=== PATIENT | male | born 1955 | race Caucasian/White ===

== ENCOUNTER → 2017-01-12 | Outpatient (REF) | payer MEDICARE ==
[2017-01-12 16:36] LABS: BASO # 0.1 10^3/uL (0.0-0.2); BASO % 0.7 % (0.0-1.0); EOS # 0.4 10^3/uL (0.0-0.50); EOS % 4.8 % (0.0-3.0); IMMATURE GRANULOCYTE % 0.3 % (0-0); LYMPH % 22.3 % (24.0-44.0); MEAN CORPUSCULAR HGB CONC 30.2 g/dl (32.0-36.5); MEAN CORPUSCULAR VOLUME 89.6 fl (80.0-96.0); MONO # 0.5 10^3/uL (0.0-0.8); MONO % 5.9 % (0.0-5.0); NEUTROPHILS # 5.9 10^3/uL (1.8-7.7); PLATELET COUNT, AUTOMATED 333 10^3/uL (150-450); RED CELL DISTRIBUTION WIDTH 14.6 % (11.5-14.5)
[2017-01-12 17:02] LABS: ALBUMIN 3.2 GM/DL (3.2-5.2); ALBUMIN/GLOBULIN RATIO 0.91 (1.00-1.93); BILIRUBIN,TOTAL 0.3 MG/DL (0.2-1.0); CALCIUM LEVEL 9.1 MG/DL (8.8-10.2); CREATININE FOR GFR 1.39 MG/DL (0.70-1.30); GLOMERULAR FILTRATION RATE 55.5 (>49); TOTAL PROTEIN 6.7 GM/DL (6.4-8.2)
[2017-01-12 17:03] LABS: POTASSIUM SERUM 5.2 MEQ/L (3.5-5.1)
[2017-01-13 14:12] LABS: BASO # 0.1 10^3/uL (0.0-0.2); BASO % 0.8 % (0.0-1.0); EOS # 0.4 10^3/uL (0.0-0.50); EOS % 5.6 % (0.0-3.0); IMMATURE GRANULOCYTE % 0.4 % (0-0); LYMPH # 2.1 10^3/uL (1.5-4.5); LYMPH % 27.8 % (24.0-44.0); MEAN CORPUSCULAR HEMOGLOBIN 27.1 pg (27.0-33.0); MEAN CORPUSCULAR HGB CONC 30.7 g/dl (32.0-36.5); MEAN CORPUSCULAR VOLUME 88.3 fl (80.0-96.0); MONO # 0.5 10^3/uL (0.0-0.8); MONO % 6.1 % (0.0-5.0); NEUTROPHILS # 4.5 10^3/uL (1.8-7.7); NEUTROPHILS % 59.3 % (36.0-66.0); PLATELET COUNT, AUTOMATED 366 10^3/uL (150-450); RED CELL DISTRIBUTION WIDTH 14.5 % (11.5-14.5); WHITE BLOOD COUNT 7.5 10^3/uL (4.0-10.0)
[2017-01-13 14:17] LABS: PERCENT SATURATION 11.6 % (19.7-50.0)
== END ==
LOC: M LAB REF 15:37
PROVIDERS: ATTEND Family Medicine Addiction Medicine
DX: E11.40 Type 2 diabetes mellitus with diabetic neuropathy, unspecified (principal); D50.0 Iron deficiency anemia secondary to blood loss (chronic)

== ENCOUNTER → 2017-01-27 | Outpatient (REF) | payer MEDICARE ==
[2017-01-27 13:17] LABS: BASO # 0.1 10^3/uL (0.0-0.2); BASO % 0.7 % (0.0-1.0); EOS # 0.3 10^3/uL (0.0-0.50); EOS % 3.8 % (0.0-3.0); IMMATURE GRANULOCYTE % 0.5 % (0-0); LYMPH % 23.3 % (24.0-44.0); MEAN CORPUSCULAR HEMOGLOBIN 26.9 pg (27.0-33.0); MEAN CORPUSCULAR HGB CONC 31.1 g/dl (32.0-36.5); MEAN CORPUSCULAR VOLUME 86.5 fl (80.0-96.0); MONO # 0.5 10^3/uL (0.0-0.8); NEUTROPHILS # 5.6 10^3/uL (1.8-7.7); NEUTROPHILS % 65.7 % (36.0-66.0); PLATELET COUNT, AUTOMATED 352 10^3/uL (150-450); RED CELL DISTRIBUTION WIDTH 14.6 % (11.5-14.5); WHITE BLOOD COUNT 8.5 10^3/uL (4.0-10.0)
[2017-01-27 13:42] LABS: ALBUMIN 3.2 GM/DL (3.2-5.2); ALBUMIN/GLOBULIN RATIO 0.84 (1.00-1.93); BILIRUBIN,TOTAL 0.3 MG/DL (0.2-1.0); CALCIUM LEVEL 8.6 MG/DL (8.8-10.2); CREATININE FOR GFR 1.34 MG/DL (0.70-1.30); GLOMERULAR FILTRATION RATE 57.9 (>49); POTASSIUM SERUM 4.7 MEQ/L (3.5-5.1)
== END ==
LOC: M LAB REF 12:45
PROVIDERS: ATTEND Family Medicine Addiction Medicine
DX: E11.40 Type 2 diabetes mellitus with diabetic neuropathy, unspecified (principal); D50.0 Iron deficiency anemia secondary to blood loss (chronic)

== ENCOUNTER → 2017-02-11 | Outpatient (REF) | payer MEDICARE ==
[2017-02-11 19:57] LABS: PERCENT SATURATION 11.8 % (19.7-50.0)
== END ==
LOC: M LAB REF 18:16
PROVIDERS: ATTEND Internal Medicine Medical Oncology
DX: D64.9 Anemia, unspecified (principal)

== ENCOUNTER → 2017-03-03 | Outpatient (REF) | payer MEDICARE ==
[2017-03-03 12:46] LABS: BASO # 0.1 10^3/uL (0.0-0.2); BASO % 0.9 % (0.0-1.0); EOS # 0.4 10^3/uL (0.0-0.50); EOS % 4.7 % (0.0-3.0); HEMATOCRIT 31.2 % (42.0-52.0); HEMOGLOBIN 9.6 g/dl (14.0-18.0); IMMATURE GRANULOCYTE % 0.4 % (0-0); LYMPH # 2.1 10^3/uL (1.5-4.5); LYMPH % 21.9 % (24.0-44.0); MEAN CORPUSCULAR HEMOGLOBIN 26.9 pg (27.0-33.0); MEAN CORPUSCULAR HGB CONC 30.8 g/dl (32.0-36.5); MEAN CORPUSCULAR VOLUME 87.4 fl (80.0-96.0); MONO # 0.5 10^3/uL (0.0-0.8); MONO % 5.4 % (0.0-5.0); NEUTROPHILS # 6.3 10^3/uL (1.8-7.7); NEUTROPHILS % 66.7 % (36.0-66.0); PLATELET COUNT, AUTOMATED 285 10^3/uL (150-450); RED BLOOD COUNT 3.57 10^6/uL (4.30-6.10); RED CELL DISTRIBUTION WIDTH 15.6 % (11.5-14.5); WHITE BLOOD COUNT 9.4 10^3/uL (4.0-10.0)
[2017-03-03 12:56] LABS: LDH LACTATE DEHYDROGENASE 150 U/L (87-241)
[2017-03-03 13:02] LABS: FERRITIN 473 NG/ML (26-388); IRON (FE) 82 UG/DL (65-175); PERCENT SATURATION 26.5 % (19.7-50.0); TOTAL IRON BINDING CAPACITY 309 UG/DL (250-450)
[2017-03-05 14:10] LABS: ANTI-PARIETAL CELL ANTIBODY 7.4 Units (0.0-20.0)
[2017-03-05 14:10] LABS: HAPTOGLOBIN 162 mg/dL (34-200); INTRINSIC FACTOR ANTIBODY 0.9 AU/mL (0.0-1.1); IgA SERUM (part of Subclasses) 279 mg/dL (90-386); TISSUE TRANSGLUTAMINASE IgA <2 U/mL (0-3)
== END ==
LOC: M LABDRWAD 12:16
DX: D50.9 Iron deficiency anemia, unspecified (principal)
CPT/HCPCS: 83010

== ENCOUNTER 2017-04-02 09:02 | Day surgery (SDC) | payer MEDICARE ==
[2017-04-02] MEDS ORDERED: NS 1,000 ML IV (09:30)
[2017-04-02] MEDS ORDERED: PROPOFOL 500 MG/50 ML VIAL As Ordered (11:02)
[2017-04-02] MEDS ORDERED: LIDOCAINE 2% INJ 100 MG/5 ML SDV (FOR ANES.) As Ordered (11:02)
== END 2017-04-02 12:32 | disposition home or self-care (01) ==
LOC: M OPP 09:02
DX: D50.9 Iron deficiency anemia, unspecified (principal); K57.30 Diverticulosis of large intestine without perforation or abscess without bleeding; K64.8 Other hemorrhoids; K22.8 Other specified diseases of esophagus; K31.89 Other diseases of stomach and duodenum; K21.9 Gastro-esophageal reflux disease without esophagitis; I12.9 Hypertensive chronic kidney disease with stage 1 through stage 4 chronic kidney disease, or unspecified chronic kidney disease; E78.5 Hyperlipidemia, unspecified; E10.9 Type 1 diabetes mellitus without complications; E03.9 Hypothyroidism, unspecified; K57.32 Diverticulitis of large intestine without perforation or abscess without bleeding; K76.9 Liver disease, unspecified; R12 Heartburn; R06.02 Shortness of breath; M06.9 Rheumatoid arthritis, unspecified; F32.9 Major depressive disorder, single episode, unspecified; J44.9 Chronic obstructive pulmonary disease, unspecified; G47.30 Sleep apnea, unspecified; R06.83 Snoring; N18.3 Chronic kidney disease, stage 3 (moderate); Z87.19 Personal history of other diseases of the digestive system; F17.210 Nicotine dependence, cigarettes, uncomplicated; Z79.899 Other long term (current) drug therapy; Z80.3 Family history of malignant neoplasm of breast
CPT/HCPCS: 45378

== ENCOUNTER → 2017-04-06 | Outpatient (REF) | payer MEDICARE ==
[2017-04-06 14:33] LABS: BASO # 0.1 10^3/uL (0.0-0.2); BASO % 0.9 % (0.0-1.0); EOS # 0.2 10^3/uL (0.0-0.50); EOS % 1.1 % (0.0-3.0); HEMATOCRIT 37.3 % (42.0-52.0); HEMOGLOBIN 11.8 g/dl (14.0-18.0); IMMATURE GRANULOCYTE # 0.1 10^3/uL (0-0); IMMATURE GRANULOCYTE % 0.6 % (0-0); LYMPH # 1.1 10^3/uL (1.5-4.5); LYMPH % 8.6 % (24.0-44.0); MEAN CORPUSCULAR HEMOGLOBIN 27.4 pg (27.0-33.0); MEAN CORPUSCULAR HGB CONC 31.6 g/dl (32.0-36.5); MEAN CORPUSCULAR VOLUME 86.5 fl (80.0-96.0); MONO # 0.3 10^3/uL (0.0-0.8); MONO % 2.4 % (0.0-5.0); NEUTROPHILS # 11.3 10^3/uL (1.8-7.7); NEUTROPHILS % 86.4 % (36.0-66.0); PLATELET COUNT, AUTOMATED 240 10^3/uL (150-450); RED BLOOD COUNT 4.31 10^6/uL (4.30-6.10); WHITE BLOOD COUNT 13.1 10^3/uL (4.0-10.0)
[2017-04-06 14:53] LABS: FERRITIN 249 NG/ML (26-388); IRON (FE) 52 UG/DL (65-175); PERCENT SATURATION 20.5 % (19.7-50.0); TOTAL IRON BINDING CAPACITY 254 UG/DL (250-450)
== END ==
LOC: M LABDRWAD 13:28
DX: D64.9 Anemia, unspecified (principal)
CPT/HCPCS: 83550

== ENCOUNTER → 2017-06-16 | Outpatient (REF) | payer MEDICARE ==
[2017-06-16 12:44] LABS: BASO # 0.1 10^3/uL (0.0-0.2); BASO % 1.1 % (0.0-1.0); EOS # 0.6 10^3/uL (0.0-0.50); EOS % 5.3 % (0.0-3.0); HEMATOCRIT 36.8 % (42.0-52.0); HEMOGLOBIN 12.2 g/dl (13.5-17.5); IMMATURE GRANULOCYTE % 0.7 % (0-3.0); LYMPH # 2.1 10^3/uL (1.5-4.5); LYMPH % 20.3 % (24.0-44.0); MEAN CORPUSCULAR HEMOGLOBIN 28.6 pg (27.0-33.0); MEAN CORPUSCULAR HGB CONC 33.2 g/dl (32.0-36.5); MEAN CORPUSCULAR VOLUME 86.2 fl (80.0-96.0); MONO # 0.6 10^3/uL (0.0-0.8); MONO % 5.7 % (0.0-5.0); NEUTROPHILS % 66.9 % (36.0-66.0); PLATELET COUNT, AUTOMATED 227 10^3/uL (150-450); RED BLOOD COUNT 4.27 10^6/uL (4.30-6.10); RED CELL DISTRIBUTION WIDTH 13.9 % (11.5-14.5); WHITE BLOOD COUNT 10.5 10^3/uL (4.0-10.0)
[2017-06-16 13:27] LABS: FERRITIN 433 NG/ML (26-388); IRON (FE) 77 UG/DL (65-175); PERCENT SATURATION 30.9 % (19.7-50.0); TOTAL IRON BINDING CAPACITY 249 UG/DL (250-450)
[2017-06-18 08:09] LABS: FOLATE 7.5 NG/ML; VITAMIN B12 LEVEL 306 PG/ML
== END ==
LOC: M LABDRWAD 12:14
DX: K22.70 Barrett's esophagus without dysplasia (principal)
CPT/HCPCS: 82746

== ENCOUNTER → 2017-06-30 | Outpatient (CLI) | payer MEDICARE ==
[~2017-06-30] MED LIST: E-Z-PAQUE 96% w/w SUSP 176GM BTL As Ordered
== END ==
LOC: M RAD 08:22
DX: D46.4 Refractory anemia, unspecified (principal)
CPT/HCPCS: 74250

== ENCOUNTER → 2017-08-02 | Outpatient (CLI) | payer MEDICARE ==
[2017-08-02 20:31] LABS: FERRITIN 377 NG/ML (26-388); IRON (FE) 57 UG/DL (65-175); PERCENT SATURATION 24.2 % (19.7-50.0); TOTAL IRON BINDING CAPACITY 236 UG/DL (250-450)
[2017-08-02 20:34] LABS: BASO # 0.1 10^3/uL (0.0-0.2); BASO % 1.3 % (0.0-1.0); EOS # 0.5 10^3/uL (0.0-0.50); EOS % 5.2 % (0.0-3.0); HEMATOCRIT 38.1 % (42.0-52.0); HEMOGLOBIN 13.1 g/dl (13.5-17.5); IMMATURE GRANULOCYTE % 0.5 % (0-3.0); LYMPH # 2.1 10^3/uL (1.5-4.5); MEAN CORPUSCULAR HEMOGLOBIN 30.7 pg (27.0-33.0); MEAN CORPUSCULAR HGB CONC 34.4 g/dl (32.0-36.5); MEAN CORPUSCULAR VOLUME 89.2 fl (80.0-96.0); MONO # 0.5 10^3/uL (0.0-0.8); MONO % 5.4 % (0.0-5.0); NEUTROPHILS # 6.3 10^3/uL (1.8-7.7); NEUTROPHILS % 65.6 % (36.0-66.0); PLATELET COUNT, AUTOMATED 246 10^3/uL (150-450); RED BLOOD COUNT 4.27 10^6/uL (4.30-6.10); RED CELL DISTRIBUTION WIDTH 13.6 % (11.5-14.5); WHITE BLOOD COUNT 9.6 10^3/uL (4.0-10.0)
== END ==
LOC: M ADAMS 17:12
DX: D50.9 Iron deficiency anemia, unspecified (principal)
CPT/HCPCS: 83550

== ENCOUNTER → 2017-09-08 | Outpatient (CLI) | payer MEDICARE ==
[2017-09-08 12:27] LABS: BASO # 0.1 10^3/uL (0.0-0.2); BASO % 1.1 % (0.0-1.0); EOS # 0.3 10^3/uL (0.0-0.50); EOS % 3.7 % (0.0-3.0); HEMATOCRIT 35.5 % (42.0-52.0); HEMOGLOBIN 12.1 g/dl (13.5-17.5); IMMATURE GRANULOCYTE % 0.5 % (0-3.0); LYMPH # 1.9 10^3/uL (1.5-4.5); LYMPH % 21.2 % (24.0-44.0); MEAN CORPUSCULAR HEMOGLOBIN 30.4 pg (27.0-33.0); MEAN CORPUSCULAR HGB CONC 34.1 g/dl (32.0-36.5); MEAN CORPUSCULAR VOLUME 89.2 fl (80.0-96.0); MONO # 0.5 10^3/uL (0.0-0.8); MONO % 5.7 % (0.0-5.0); NEUTROPHILS # 6.2 10^3/uL (1.8-7.7); NEUTROPHILS % 67.8 % (36.0-66.0); PLATELET COUNT, AUTOMATED 226 10^3/uL (150-450); RED BLOOD COUNT 3.98 10^6/uL (4.30-6.10); RED CELL DISTRIBUTION WIDTH 12.6 % (11.5-14.5); WHITE BLOOD COUNT 9.2 10^3/uL (4.0-10.0)
[2017-09-08 13:13] LABS: CREATININE FOR GFR 1.59 MG/DL (0.70-1.30); FERRITIN 389 NG/ML (26-388); GLOMERULAR FILTRATION RATE 47.5 (>49); IRON (FE) 65 UG/DL (65-175); PERCENT SATURATION 27.4 % (19.7-50.0); TOTAL IRON BINDING CAPACITY 237 UG/DL (250-450)
[2017-09-08 13:13] LABS: BLOOD UREA NITROGEN 33 MG/DL (7-18)
[2017-09-08 13:28] LABS: VITAMIN B12 LEVEL 405 PG/ML
[2017-09-08 13:29] LABS: FOLATE 7.5 NG/ML
== END ==
LOC: M ADAMS 08:31
DX: D50.9 Iron deficiency anemia, unspecified (principal)
CPT/HCPCS: 82565

== ENCOUNTER → 2017-09-16 | Outpatient (CLI) | payer MEDICARE | LOC: M RAD 08:07 | DX: Z12.2 Encounter for screening for malignant neoplasm of respiratory organs (principal); F17.218 Nicotine dependence, cigarettes, with other nicotine-induced disorders; R91.1 Solitary pulmonary nodule | CPT/HCPCS: G0297 ==

== ENCOUNTER → 2017-10-15 | Outpatient (REF) | payer MEDICARE ==
[2017-10-15 17:23] LABS: ESTIMATED AVERAGE GLUCOSE 278 MG/DL (60-110); HEMOGLOBIN A1c 11.3 %
[2017-10-15 17:38] LABS: ALBUMIN 3.1 GM/DL (3.2-5.2); ALBUMIN/GLOBULIN RATIO 0.91 (1.00-1.93); ALKALINE PHOSPHATASE 113 U/L (45-117); ALT/SGPT 20 U/L (12-78); ANION GAP 7 MEQ/L (8-16); AST/SGOT 16 U/L (7-37); BILIRUBIN,TOTAL 0.4 MG/DL (0.2-1.0); BLOOD UREA NITROGEN 26 MG/DL (7-18); CARBON DIOXIDE LEVEL 29 MEQ/L (21-32); CHLORIDE LEVEL 102 MEQ/L (98-107); CREATININE FOR GFR 1.41 MG/DL (0.70-1.30); GLOMERULAR FILTRATION RATE 54.6 (>49); GLUCOSE, FASTING 186 MG/DL (70-100); POTASSIUM SERUM 4.6 MEQ/L (3.5-5.1); RHEUMATOID FACTOR QUANT 24.3 IU/ML (<15.0); SODIUM LEVEL 138 MEQ/L (136-145); TOTAL PROTEIN 6.5 GM/DL (6.4-8.2)
[2017-10-15 17:51] LABS: CREATININE, URINE 70.5 MG/DL; MAU/CREAT RATIO 6453.9 MCG/MG (0.0-30.0)
== END ==
LOC: M LAB REF 16:12
DX: E11.40 Type 2 diabetes mellitus with diabetic neuropathy, unspecified (principal)
CPT/HCPCS: 84443

== ENCOUNTER → 2017-11-08 | Outpatient (REF) | payer MEDICARE ==
[2017-11-08 13:46] LABS: RETIC HEMOGLOBIN EQUIVALENT 34.9 pg (24-36); RETICULOCYTE # 87.4 10^9/L (17-77); RETICULOCYTE % 2.4 % (0.5-1.5)
[2017-11-08 13:49] LABS: SLIDE REVIEW Report; SOURCE PERIPHERAL SMEAR
[2017-11-09 08:06] LABS: HAPTOGLOBIN 234 mg/dL (34-200)
== END ==
LOC: M LAB REF 13:04
DX: D50.9 Iron deficiency anemia, unspecified (principal)
CPT/HCPCS: 83010

== ENCOUNTER 2017-11-29 09:02 | Emergency (ER) | payer MEDICARE ==
[2017-11-29] MEDS: IPRATROPIUM 0.5MG/ALBUTEROL 2.5MG INH SOL UD 3ML (DUONEB)(J7620) NEB ×3 (10:03→11:11)
[2017-11-29] MEDS: methylPREDNISolone INJ 125 MG/2 ML VIAL (J2930) IV (10:13)
[2017-11-29 10:30] LABS: BASO # 0.1 10^3/uL (0.0-0.2); BASO % 0.8 % (0.0-1.0); EOS # 0.6 10^3/uL (0.0-0.50); EOS % 6.1 % (0.0-3.0); LYMPH # 2.2 10^3/uL (1.5-4.5); LYMPH % 22.2 % (24.0-44.0); MEAN CORPUSCULAR HEMOGLOBIN 29.6 pg (27.0-33.0); MEAN CORPUSCULAR HGB CONC 32.4 g/dl (32.0-36.5); MEAN CORPUSCULAR VOLUME 91.6 fl (80.0-96.0); MONO # 0.6 10^3/uL (0.0-0.8); MONO % 5.9 % (0.0-5.0); NEUTROPHILS # 6.2 10^3/uL (1.8-7.7); PLATELET COUNT, AUTOMATED 212 10^3/uL (150-450); RED BLOOD COUNT 3.71 10^6/uL (4.30-6.10); RED CELL DISTRIBUTION WIDTH 12.3 % (11.5-14.5); WHITE BLOOD COUNT 9.8 10^3/uL (4.0-10.0)
[2017-11-29 11:00] LABS: ANION GAP 4 MEQ/L (8-16); BLOOD UREA NITROGEN 25 MG/DL (7-18); CALCIUM LEVEL 8.4 MG/DL (8.8-10.2); CARBON DIOXIDE LEVEL 32 MEQ/L (21-32); CHLORIDE LEVEL 101 MEQ/L (98-107); CPK CREATINE PHOSPHOKINASE 280 U/L (39-308); CREATININE FOR GFR 1.34 MG/DL (0.70-1.30); GLOMERULAR FILTRATION RATE 57.9 (>49); GLUCOSE, FASTING 186 MG/DL (70-100); MB/CK RELATIVE INDEX 1.21 (< OR =4); NT-PRO BNP 187 PG/ML (<125); SODIUM LEVEL 137 MEQ/L (136-145); TROPONIN I < 0.02 NG/ML (< 0.10)
[2017-11-29 11:04] LABS: LACTIC ACID SEPSIS PROTOCOL 0.7 MMOL/L (0.4-2.0)
== END 2017-11-29 13:10 | disposition home or self-care (01) ==
LOC: M ED 09:02
DX: J45.901 Unspecified asthma with (acute) exacerbation (principal); R91.1 Solitary pulmonary nodule; R59.9 Enlarged lymph nodes, unspecified; N28.1 Cyst of kidney, acquired; K80.20 Calculus of gallbladder without cholecystitis without obstruction; I87.8 Other specified disorders of veins; R31.9 Hematuria, unspecified; Z98.890 Other specified postprocedural states; J44.9 Chronic obstructive pulmonary disease, unspecified; N18.3 Chronic kidney disease, stage 3 (moderate); D50.9 Iron deficiency anemia, unspecified; Z87.891 Personal history of nicotine dependence
CPT/HCPCS: J2930

== ENCOUNTER → 2017-11-29 | Outpatient (CLI) | payer MEDICARE | LOC: M RAD 13:44 | DX: R91.1 Solitary pulmonary nodule (principal); R59.9 Enlarged lymph nodes, unspecified; N28.1 Cyst of kidney, acquired; K80.20 Calculus of gallbladder without cholecystitis without obstruction; I87.8 Other specified disorders of veins; R31.9 Hematuria, unspecified; Z98.890 Other specified postprocedural states ==

== ENCOUNTER → 2017-11-29 | Outpatient (CLI) | payer MEDICARE | LOC: M RAD 13:46 | DX: N28.1 Cyst of kidney, acquired (principal); K80.20 Calculus of gallbladder without cholecystitis without obstruction; I87.8 Other specified disorders of veins; R31.9 Hematuria, unspecified; Z98.890 Other specified postprocedural states ==

== ENCOUNTER → 2018-01-25 | Outpatient (CLI) | payer MEDICARE | LOC: M SLEEP 19:24 | DX: G47.33 Obstructive sleep apnea (adult) (pediatric) (principal); G47.61 Periodic limb movement disorder | CPT/HCPCS: 95811 ==

== ENCOUNTER → 2018-03-04 | Outpatient (REF) | payer MEDICARE ==
[~2018-03-04] MED LIST changes: +ADV100INH INH; +ALBU83IN INH; +ATOR40TA75 PO; -E-Z-PAQUE 96% w/w SUSP 176GM BTL As Ordered; +FENO160T10 PO; +FERR325T3 PO; +FURO40TA2 PO; +GABA600T4 PO; +HYDR-3910 PO; +IPRA2IN INH; +LEVE1INJ5 SC; +LEVO150T7 PO; +LEXA1TAB2 PO; +LISI-542 PO; +LISI10TA2 PO; +NOVOINJ3 SC; +OMEP20CA3 PO; +PRED10TA2 PO; +PREG50CA PO; +PROAAER10 INH; +RANI150C PO; +TIOT18INH INH; +TOUJ1.2I SC
[2018-03-04 19:11] LABS: BASO # 0.1 10^3/uL (0.0-0.2); BASO % 0.8 % (0.0-1.0); EOS # 0.2 10^3/uL (0.0-0.50); EOS % 1.2 % (0.0-3.0); HEMATOCRIT 37.2 % (42.0-52.0); HEMOGLOBIN 12.1 g/dl (13.5-17.5); LYMPH # 1.7 10^3/uL (1.5-4.5); LYMPH % 11.7 % (24.0-44.0); MEAN CORPUSCULAR HEMOGLOBIN 30.2 pg (27.0-33.0); MEAN CORPUSCULAR HGB CONC 32.5 g/dl (32.0-36.5); MEAN CORPUSCULAR VOLUME 92.8 fl (80.0-96.0); MONO # 0.5 10^3/uL (0.0-0.8); MONO % 3.1 % (0.0-5.0); NEUTROPHILS # 12.3 10^3/uL (1.8-7.7); NEUTROPHILS % 82.4 % (36.0-66.0); PLATELET COUNT, AUTOMATED 340 10^3/uL (150-450); RED BLOOD COUNT 4.01 10^6/uL (4.30-6.10); WHITE BLOOD COUNT 14.9 10^3/uL (4.0-10.0)
[2018-03-04 19:18] LABS: ALT/SGPT 22 U/L (12-78); BILIRUBIN,TOTAL 0.4 MG/DL (0.2-1.0); BLOOD UREA NITROGEN 34 MG/DL (7-18); C REACTIVE PROTEIN QUANTITATIV 2.27 MG/DL (0.00-0.30); CALCIUM LEVEL 8.7 MG/DL (8.8-10.2); CARBON DIOXIDE LEVEL 27 MEQ/L (21-32); CHLORIDE LEVEL 99 MEQ/L (98-107); CREATININE FOR GFR 1.53 MG/DL (0.70-1.30); GLOMERULAR FILTRATION RATE 49.5 (>49); GLUCOSE, FASTING 222 MG/DL (70-100); POTASSIUM SERUM 5.9 MEQ/L (3.5-5.1); RHEUMATOID FACTOR QUANT 14.5 IU/ML (<15.0); SODIUM LEVEL 134 MEQ/L (136-145); TOTAL PROTEIN 6.2 GM/DL (6.4-8.2); URIC ACID 6.8 MG/DL (3.5-7.2)
[2018-03-04 20:09] LABS: ERYTHROCYTE SEDIMENTATION RATE 79 mm/hr (0-20)
[2018-03-07 00:06] LABS: CYCLIC CITRULLINATED PEPTIDE > 250 units (0-19)
[2018-03-07 10:31] LABS: HEPATITIS C VIRUS ABY INDEX 0.1 INDEX (<0.8)
[2018-03-07 11:59] LABS: HEPATITIS B SURFACE ANTIGEN POSITIVE (NEGATIVE)
== END ==
LOC: M SFHCPLAZ 12:16
PROVIDERS: ATTEND Internal Medicine Rheumatology
DX: M05.79 Rheumatoid arthritis with rheumatoid factor of multiple sites without organ or systems involvement (principal); M1A.30X0 Chronic gout due to renal impairment, unspecified site, without tophus (tophi)
CPT/HCPCS: 80053; 84550; 85025; 85652; 86140; 86200; 86431; 86480; 86803; 87340; G0463

== ENCOUNTER → 2018-03-09 | Outpatient (CLI) | payer MEDICARE ==
[~2018-03-09] MED LIST changes: -RANI150C PO
[2018-03-12 11:36] LABS: HBV HBV DNA not detected IU/mL (.); HEPATITIS A IgG TOTAL Negative (Negative); HEPATITIS B CORE ANTIBODY IGG Negative (Negative); HEPATITIS BE ANTIBODY Negative (Negative); HEPATITIS BE ANTIGEN Negative (Negative)
== END ==
LOC: M ADAMS 08:29
PROVIDERS: ATTEND Internal Medicine Rheumatology
DX: B19.10 Unspecified viral hepatitis B without hepatic coma (principal)

== ENCOUNTER 2018-03-25 13:09 | Inpatient (IN) | payer MEDICARE ==
[~2018-03-25] VITALS: Ht 172.7 cm; Wt 104.1 kg
[2018-03-25 14:27] LABS: BASO # 0.1 10^3/uL (0.0-0.2); BASO % 0.6 % (0.0-1.0); EOS # 0.5 10^3/uL (0.0-0.50); EOS % 5.4 % (0.0-3.0); LYMPH # 0.9 10^3/uL (1.5-4.5); LYMPH % 10.3 % (24.0-44.0); MEAN CORPUSCULAR HEMOGLOBIN 29.7 pg (27.0-33.0); MEAN CORPUSCULAR HGB CONC 32.3 g/dl (32.0-36.5); MONO # 0.5 10^3/uL (0.0-0.8); MONO % 5.6 % (0.0-5.0); NEUTROPHILS # 6.8 10^3/uL (1.8-7.7); NEUTROPHILS % 77.1 % (36.0-66.0); PLATELET COUNT, AUTOMATED 234 10^3/uL (150-450); RED BLOOD COUNT 3.37 10^6/uL (4.30-6.10); WHITE BLOOD COUNT 8.9 10^3/uL (4.0-10.0)
--- NOTE | 2018-03-25 14:50 | REP ---
Chest one-view HISTORY: Cough Comparison: None The lungs are clear. The heart is normal in size. The pulmonary vasculature is normal in appearance. Impression: No acute disease. Electronically Signed by Victor M George MD 03/25/2018 02:40 P
[2018-03-25 15:01] LABS: BLOOD UREA NITROGEN 24 MG/DL (7-18); CALCIUM LEVEL 8.6 MG/DL (8.8-10.2); CARBON DIOXIDE LEVEL 29 MEQ/L (21-32); CHLORIDE LEVEL 100 MEQ/L (98-107); CPK CREATINE PHOSPHOKINASE 274 U/L (39-308); CREATININE FOR GFR 1.45 MG/DL (0.70-1.30); GLOMERULAR FILTRATION RATE 52.7 (>49); GLUCOSE, FASTING 156 MG/DL (70-100); POTASSIUM SERUM 4.5 MEQ/L (3.5-5.1); SODIUM LEVEL 137 MEQ/L (136-145); TROPONIN I < 0.02 NG/ML (< 0.10)
[2018-03-25] MEDS ORDERED: IPRATROPIUM 0.5MG/ALBUTEROL 2.5MG INH SOL UD 3ML (DUONEB)(J7620) NEB ONE (15:15)
[2018-03-25] MEDS ORDERED: ALBUTEROL SULFATE 2.5 MG/0.5 ML INH NEB SOLN INH ONE (15:15)
[2018-03-25 15:40] LABS: ABG BASE EXCESS 2.8 (-2.0-2.0); ABG HCO3 29.5 MEQ/L (22.0-26.0); ABG O2 SATURATION 98.1 % (95.0-99.0); ABG PARTIAL PRESSURE CO2 55.6 mmHg (35.0-45.0); ABG PARTIAL PRESSURE O2 106.9 mmHg (75.0-100.0); ABG TOTAL CO2 31.2 MEQ/L (23.0-31.0); ABG pH (ARTERIAL) 7.342 UNITS (7.350-7.450)
[2018-03-25] MEDS ORDERED: RANI150C PO (18:09)
[2018-03-25] MEDS ORDERED: GLUCAGON FOR INJ 1 MG VIAL (J1610) SC PRN (18:45)
[2018-03-25] MEDS ORDERED: DOXYCYCLINE HYCLATE 100 MG in D5W MINI-BAG PLUS 100 ML IV ONE (18:45)
[2018-03-25] MEDS ORDERED: GLUCOSE 4 GM CHEW TABLET PO PRN (18:45)
[2018-03-25] MEDS ORDERED: ACETAMINOPHEN TAB 650MG DOSE (2X325MG) PO PRN (18:45)
[2018-03-25] MEDS ORDERED: DEXTROSE 50% 50 ML SYRINGE IV PRN (18:45)
[2018-03-25] MEDS ORDERED: MORPHINE 4 MG/ML 1ML VIAL/SYRINGE (J2270) IV PRN (18:45)
[2018-03-25] MEDS: PERCOCET 5MG/325MG TAB PO PRN (19:08)
[2018-03-25] MEDS: NS 1,000 ML IV SCH (19:08)
[2018-03-25] MEDS: IPRATROPIUM 0.5MG/ALBUTEROL 2.5MG INH SOL UD 3ML (DUONEB)(J7620) NEB SCH (19:21)
--- NOTE | 2018-03-25 19:30 | HPE ---
DATE OF ADMISSION: 03/25/2018 PRIMARY CARE PROVIDER: Dr. Garcia ATTENDING PHYSICIAN: Dr. Rangel CHIEF COMPLAINT: Worsening shortness of breath and coughing for the last 3 days. HISTORY OF PRESENT ILLNESS: The patient is a 62-year-old male with a history of COPD. He is using 3 liters of oxygen at home [facility], presented to the hospital for evaluation of the above complaints. The history is provided by himself. Per the patient he still smokes a few cigarettes a day. Three days ago he was given IV iron infusion for his iron deficient anemia. Since then he was not feeling good and has a coughing, shortness of breath and chest pain which related to shortness of breath. His breathing condition is getting worse gradually and decided to come to the emergency room for evaluation. In the ER his initial workup was not significant however in the ER his influenza screen was positive for coronavirus OC43 positive. Medicine service was called for admission. REVIEW OF SYSTEM: Denies fever, no chills, no blurred vision but positive coughing, positive shortness of breath, runny nose, sore throat, but no nausea, no vomiting, no abdomen pain, no dysuria or diarrhea. PAST MEDICAL HISTORY: 1. COPD on 3 liters of oxygen. 2. Hypothyroidism. 3. Rheumatoid arthritis. 4. Hypertension. 5. Type 2 diabetes. 6. Chronic kidney disease stage 3. 7. Iron deficiency anemia. PAST SURGICAL HISTORY: Colectomy for diverticulitis. ALLERGIES: No known drug allergies. MEDICATIONS: Hydralazine 25 mg by mouth three times a day, Lyrica 50 mg by mouth twice a day, Omeprazole 20 mg by mouth daily, and Lisinopril 5 mg by mouth daily, Synthroid 200 mcg by mouth daily, Lasix 40 mg by mouth daily, Lexapro 20 mg daily, atorvastatin 40 mg by mouth daily and Insulin 50 units twice a day. SOCIAL HISTORY: He continued to smoke a few cigarettes a day. No alcohol abuse. No intravenous drug use. He is FULL CODE. He lives at home with his family. FAMILY HISTORY: Noncontributory. PHYSICAL EXAMINATION: VITALS: Temperature 98.7, heart rate 90, respiratory rate 16, blood pressure e130/71, oxygen saturation 97% on 3 liters of oxygen. GENERAL: He is awake, alert and oriented times three. He is in respiratory distress. HEENT: Atraumatic. Pupils are equal, round. No jaundice. Extraocular muscles are intact. Ear nose and throat are normal. Mouth mucosa is dry. NECK: No JVD and no bruits. LUNGS: Diffusely wheezing but no crackles. Heart S1, S2, regular no murmur. ABDOMEN: Soft, bowel sounds are positive and nontender. EXTREMITIES: No edema. NEUROLOGICAL: Nonfocal. SKIN: No rash. PSYCHOLOGICAL: No acute psychosis. LABS: CBC differential WBC 8.9, hemoglobin and hematocrit 10 over 31, platelets 234, sodium 137, potassium 4.5, bicarbonate 29, BUN 14, creatinine 1.45, glucose 156 and respiratory screen positive for the coronavirus OC43. Chest x-ray did not show evidence of pneumonia. IMPRESSION: 1. Acute on chronic respiratory failure. 2. COPD exacerbation. 3. Coronavirus OC43 respiratory infection. 4. Hypertension. 5. Type 2 diabetes. 6. CKD stage 3. PLAN: Patient will be admitted to med-surg floor. We will treat him with IV Solu-Medrol and doxycycline and nebulizers for COPD exacerbation and will continue his home medications. Heparin will be given for DVT prophylaxis. MTDD
[2018-03-25] MEDS: methylPREDNISolone INJ 40 MG/1 ML VIAL (J2920) IV SCH (20:19)
[2018-03-25] MEDS ORDERED: LEVEMIR (INSULIN DETEMIR) 1 UNITS/0.01ML SC SCH (21:00)
[2018-03-25] MEDS: **hydrALAZINE HCL** 25 MG TAB PO SCH (22:05)
[2018-03-25] MEDS: DOCUSATE SODIUM 100 MG CAP PO SCH (22:05)
[2018-03-25] MEDS: GABAPENTIN 300 MG CAP PO SCH (22:06)
[2018-03-25] MEDS: FAMOTIDINE 20 MG TAB PO SCH (22:06)
[2018-03-25] MEDS: PREGABALIN 50 MG CAP (LYRICA) PO SCH (22:06)
[2018-03-25] MEDS: HumaLOG INSULIN (NovoLOG) PER UNIT SC SCH (22:19)
[2018-03-26 00:10] VITALS: BP 129/65
[2018-03-26] MEDS: IPRATROPIUM 0.5MG/ALBUTEROL 2.5MG INH SOL UD 3ML (DUONEB)(J7620) NEB PRN (00:40)
[2018-03-26] MEDS: PERCOCET 5MG/325MG TAB PO PRN ×2 (00:52→20:54)
[2018-03-26] MEDS: methylPREDNISolone INJ 40 MG/1 ML VIAL (J2920) IV SCH ×2 (03:19→12:45)
[2018-03-26] MEDS: LEVOTHYROXINE 100MCG TABLET (0.1MG) PO SCH (05:34)
[2018-03-26] MEDS: HEPARIN SOD (PORCINE) 5000 UNITS/ML VIAL SC SCH ×3 (05:34→21:04)
[2018-03-26 06:00] VITALS: BP 130/69
[2018-03-26 06:37] LABS: BASO % 0.1 % (0.0-1.0); HEMOGLOBIN 9.5 g/dl (13.5-17.5); LYMPH # 0.5 10^3/uL (1.5-4.5); MEAN CORPUSCULAR HEMOGLOBIN 29.5 pg (27.0-33.0); MEAN CORPUSCULAR HGB CONC 32.8 g/dl (32.0-36.5); MEAN CORPUSCULAR VOLUME 90.1 fl (80.0-96.0); MONO # 0.2 10^3/uL (0.0-0.8); NEUTROPHILS # 11.1 10^3/uL (1.8-7.7); NEUTROPHILS % 92.8 % (36.0-66.0); PLATELET COUNT, AUTOMATED 255 10^3/uL (150-450); RED BLOOD COUNT 3.22 10^6/uL (4.30-6.10); WHITE BLOOD COUNT 11.9 10^3/uL (4.0-10.0)
[2018-03-26 06:56] LABS: CALCIUM LEVEL 8.4 MG/DL (8.8-10.2); CREATININE FOR GFR 1.75 MG/DL (0.70-1.30); GLOMERULAR FILTRATION RATE 42.4 (>49); POTASSIUM SERUM 5.1 MEQ/L (3.5-5.1)
[2018-03-26] MEDS: IPRATROPIUM 0.5MG/ALBUTEROL 2.5MG INH SOL UD 3ML (DUONEB)(J7620) NEB SCH ×4 (07:37→19:45)
[2018-03-26] MEDS: HumaLOG INSULIN (NovoLOG) PER UNIT SC SCH ×4 (07:48→20:53)
[2018-03-26] MEDS: NS 1,000 ML IV SCH ×2 (08:51→21:51)
[2018-03-26] MEDS: ESCITALOPRAM OXALATE 10 MG TAB (LEXAPRO) PO SCH (08:51)
[2018-03-26] MEDS: PREGABALIN 50 MG CAP (LYRICA) PO SCH ×2 (08:52→20:54)
[2018-03-26] MEDS: PANTOPRAZOLE 40MG TAB (PROTONIX) PO SCH (08:52)
[2018-03-26] MEDS: GABAPENTIN 300 MG CAP PO SCH ×3 (08:52→20:54)
[2018-03-26] MEDS: FAMOTIDINE 20 MG TAB PO SCH ×2 (08:52→20:55)
[2018-03-26] MEDS: DOCUSATE SODIUM 100 MG CAP PO SCH ×2 (08:52→20:54)
[2018-03-26] MEDS: ATORVASTATIN 20 MG TAB PO SCH (08:52)
[2018-03-26] MEDS: **hydrALAZINE HCL** 25 MG TAB PO SCH ×3 (08:52→21:00)
[2018-03-26] MEDS ORDERED: FUROSEMIDE 40 MG TAB PO SCH (09:00)
[2018-03-26] MEDS ORDERED: LISINOPRIL 5 MG TAB PO SCH (09:00)
[2018-03-26] MEDS ORDERED: LEVEMIR (INSULIN DETEMIR) 1 UNITS/0.01ML SC SCH ×2 (09:00→21:00)
--- NOTE | 2018-03-26 09:24 | IPNPDOC ---
Date Seen The patient was seen on 03/26/18. Progress Note SUBJECTIVE: Patient seen and examined this morning at bedside. He has no complaints. He states that he feels relatively well and feels better since been admitted. He did produce a sputum culture and denies having any fevers or trouble breathing at this time. Denies shortness of breath or chest pain as well. He does state that he has a pulmonology appointment coming up this current Wednesday and a rheumatology appointment coming this and he would like to make this appointment if it's possible. OBJECTIVE PHYSICAL EXAMINATION: VITAL SIGNS: Please see below. GENERAL: He is awake, alert and oriented times three. He is in no respiratory distress. HEENT: Atraumatic. Pupils are equal, round. No jaundice. Extraocular muscles are intact. Ear nose and throat are normal. Mouth mucosa is dry. No JVD and no bruits. LUNGS: Diffuse inspiratory and expiratory wheezing but no crackles. Heart: S1, S2, regular no murmur. ABDOMEN: Soft, bowel sounds are positive and nontender. EXTREMITIES: No edema. NEUROLOGICAL: Nonfocal. SKIN: No rash. PSYCHOLOGICAL: No acute psychosis. LABORATORY DATA, IMAGING STUDIES, MICROBIOLOGY: Please see below. DVT prophylaxis ordered?: Yes heparin ASSESSMENT AND PLAN: 62-year-old male with a history of COPD on 3 liters of oxygen at home presented with worsening shortness of breath and coughing for 3 days. Acute on chronic respiratory failure secondary to COPD exacerbation -Respiratory panel positive for Coronavirus -Sputum cultures pending -ABG pH 7.342 PCO2 55.6 -Because Solu-Medrol and prednisone are dose to dose after discusing with pharmacy and we will transition him from Solu-Medrol to prednisone 40 mg PO twice a day first dose tonight at 2100 and then we can discharge the patient with a steroid taper Wednesday morning. -Continue oxygen maintain sats between 80 and 92 -DuoNeb's jacob and prn Hyponatremia euvolemic -Pseudohyponatremia -Sodium this morning is 131 with a glucose of 403 his corrected sodium is 136. -No IV fluids will be given. We'll does have tighter controls of his sugars -monitor his sodium and fluid status Hypertension -c/w Lasix 40 mg, Lisinopril 5 mg and hydralazine 25 mg Type 2 diabetes -c/w Levemir 65 units a.m. and 50 units p.m for now while on steroids Hypothyroidism -c/w Synthroid 200 g CKD stage 3 Acid reflux -c/w PPI and ranitidine Depression -c/w Lexapro 20 mg Chronic pain -c/w Lyrica 50 mg, gabapentin 600 mg DVT prophylaxis -Heparin 5000 units Disposition transition to prednisone by mouth possible discharge in 24-48 hours pending clinical improvement. VS, I&O, 24H, Fishbone Vital Signs/I&O Vital Signs Date Time Temp Pulse Resp B/P (MAP) Pulse Ox O2 Delivery O2 Flow Rate FiO2 03/26/18 08:52 130/69 03/26/18 06:00 97.7 82 20 95 Nasal Cannula 2.0 I&O- Last 24 Hours up to 6 AM 03/26/18 06:00 Intake Total 862 ml Output Total 400 ml Balance 462 ml Laboratory Data 24H LABS Laboratory Tests 2 03/25/18 13:48: Immature Granulocyte % (Auto) 1.0, White Blood Count 8.9, Red Blood Count 3.37L, Hemoglobin 10.0L, Hematocrit 31.0L, Mean Corpuscular Volume 92.0, Mean Corpuscular Hemoglobin 29.7, Mean Corpuscular Hemoglobin Concent 32.3, Red Cell Distribution Width 13.3, Platelet Count 234, Neutrophils (%) (Auto) 77.1H, Lymphocytes (%) (Auto) 10.3L, Monocytes (%) (Auto) 5.6H, Eosinophils (%) (Auto) 5.4H, Basophils (%) (Auto) 0.6, Neutrophils # (Auto) 6.8, Lymphocytes # (Auto) 0.9L, Monocytes # (Auto) 0.5, Eosinophils # (Auto) 0.5, Basophils # (Auto) 0.1, Nucleated Red Blood Cells % (auto) 0.0, Anion Gap 8, Glomerular Filtration Rate 52.7, Blood Urea Nitrogen 24H, Creatinine 1.45H, Sodium Level 137, Potassium Level 4.5, Chloride Level 100, Carbon Dioxide Level 29, Calcium Level 8.6L, Total Creatine Kinase 274, Creatine Kinase MB 6.0H, Creatine Kinase MB Relative Index 2.30, Troponin I < 0.02 03/25/18 15:34: Blood Gas Bicarbonate Standard 27.0H, Arterial Blood pH 7.342L, Arterial Blood Partial Pressure CO2 55.6H, Arterial Blood Partial Pressure O2 106.9H, Arterial Blood Total CO2 31.2H, Arterial Blood HCO3 29.5H, Arterial Blood Base Excess 2.8H, Arterial Blood Oxygen Saturation 98.1 03/25/18 22:11: Bedside Glucose (Misc Panel) 430H 03/26/18 03:25: Bedside Glucose (Misc Panel) 438H 03/26/18 06:07: Immature Granulocyte % (Auto) 1.1, White Blood Count 11.9H, Red Blood Count 3.22L, Hemoglobin 9.5L, Hematocrit 29.0L, Mean Corpuscular Volume 90.1, Mean Corpuscular Hemoglobin 29.5, Mean Corpuscular Hemoglobin Concent 32.8, Red Cell Distribution Width 13.1, Platelet Count 255, Neutrophils (%) (Auto) 92.8H, Lymphocytes (%) (Auto) 4.0L, Monocytes (%) (Auto) 2.0, Eosinophils (%) (Auto) 0.0, Basophils (%) (Auto) 0.1, Neutrophils # (Auto) 11.1H, Lymphocytes # (Auto) 0.5L, Monocytes # (Auto) 0.2, Eosinophils # (Auto) 0.0, Basophils # (Auto) 0.0, Nucleated Red Blood Cells % (auto) 0.0, Anion Gap 7L, Glomerular Filtration Rate 42.4L, Blood Urea Nitrogen 38#H, Creatinine 1.75H, Sodium Level 131L, Potassium Level 5.1, Chloride Level 97L, Carbon Dioxide Level 27, Calcium Level 8.4L CBC/BMP Laboratory Tests 03/25/18 13:48 Red Blood Count 3.37 L, Mean Corpuscular Volume 92.0, Mean Corpuscular Hemoglobin 29.7, Mean Corpuscular Hemoglobin Concent 32.3, Red Cell Distribution Width 13.3, Neutrophils (%) (Auto) 77.1 H, Lymphocytes (%) (Auto) 10.3 L, Monocytes (%) (Auto) 5.6 H, Eosinophils (%) (Auto) 5.4 H, Basophils (%) (Auto) 0.6, Neutrophils # (Auto) 6.8, Lymphocytes # (Auto) 0.9 L, Monocytes # (Auto) 0.5, Eosinophils # (Auto) 0.5, Basophils # (Auto) 0.1, Calcium Level 8.6 L, Total Creatine Kinase 274 03/26/18 06:07 Red Blood Count 3.22 L, Mean Corpuscular Volume 90.1, Mean Corpuscular Hemoglobin 29.5, Mean Corpuscular Hemoglobin Concent 32.8, Red Cell Distribution Width 13.1, Neutrophils (%) (Auto) 92.8 H, Lymphocytes (%) (Auto) 4.0 L, Monocytes (%) (Auto) 2.0, Eosinophils (%) (Auto) 0.0, Basophils (%) (Auto) 0.1, Neutrophils # (Auto) 11.1 H, Lymphocytes # (Auto) 0.5 L, Monocytes # (Auto) 0.2, Eosinophils # (Auto) 0.0, Basophils # (Auto) 0.0, Calcium Level 8.4 L Microbiology Microbiology 03/26/18 Blood Culture, Received Pending 03/26/18 Blood Culture, Received Pending 03/25/18 Respiratory Virus Panel (PCR) ([facility]) - Final, Complete Coronavirus Oc43 GME ATTESTATION GME ATTESTATION My faculty preceptor for this patient encounter was physically present during the encounter and was fully available. All aspects of the patient interview, examination, medical decision making process, and medical care plan development were reviewed and approved by the faculty preceptor. The faculty preceptor is aware and concurs with the plan as stated in the body of this note and will attest to such by his/her cosignature. SATNAM FREDERICK DO Mar 26, 2018 09:24
[2018-03-26 14:00] VITALS: BP 131/63
[2018-03-26] MEDS: predniSONE 20 MG TAB PO SCH (20:54)
[2018-03-26 22:00] VITALS: BP 106/63
[2018-03-27] MEDS: LEVOTHYROXINE 100MCG TABLET (0.1MG) PO SCH (05:31)
[2018-03-27] MEDS: HEPARIN SOD (PORCINE) 5000 UNITS/ML VIAL SC SCH ×3 (05:31→21:16)
[2018-03-27 06:00] VITALS: BP 136/63
[2018-03-27 06:22] LABS: BASO % 0.2 % (0.0-1.0); HEMATOCRIT 28.6 % (42.0-52.0); HEMOGLOBIN 9.3 g/dl (13.5-17.5); LYMPH # 0.8 10^3/uL (1.5-4.5); LYMPH % 5.4 % (24.0-44.0); MEAN CORPUSCULAR HEMOGLOBIN 29.8 pg (27.0-33.0); MEAN CORPUSCULAR HGB CONC 32.5 g/dl (32.0-36.5); MEAN CORPUSCULAR VOLUME 91.7 fl (80.0-96.0); MONO # 0.5 10^3/uL (0.0-0.8); MONO % 3.3 % (0.0-5.0); NEUTROPHILS # 13.9 10^3/uL (1.8-7.7); NEUTROPHILS % 89.4 % (36.0-66.0); PLATELET COUNT, AUTOMATED 273 10^3/uL (150-450); RED BLOOD COUNT 3.12 10^6/uL (4.30-6.10); WHITE BLOOD COUNT 15.5 10^3/uL (4.0-10.0)
[2018-03-27] MEDS: IPRATROPIUM 0.5MG/ALBUTEROL 2.5MG INH SOL UD 3ML (DUONEB)(J7620) NEB SCH ×4 (06:34→20:11)
[2018-03-27 06:41] LABS: CALCIUM LEVEL 7.8 MG/DL (8.8-10.2); CREATININE FOR GFR 1.66 MG/DL (0.70-1.30); GLOMERULAR FILTRATION RATE 45.1 (>49); POTASSIUM SERUM 5.9 MEQ/L (3.5-5.1)
[2018-03-27] MEDS: ESCITALOPRAM OXALATE 10 MG TAB (LEXAPRO) PO SCH (08:47)
[2018-03-27] MEDS: FAMOTIDINE 20 MG TAB PO SCH ×2 (08:47→21:15)
[2018-03-27] MEDS: DOCUSATE SODIUM 100 MG CAP PO SCH ×2 (08:47→21:15)
[2018-03-27] MEDS: ATORVASTATIN 20 MG TAB PO SCH (08:47)
[2018-03-27] MEDS: PREGABALIN 50 MG CAP (LYRICA) PO SCH ×2 (08:47→21:16)
[2018-03-27] MEDS: GABAPENTIN 300 MG CAP PO SCH ×3 (08:48→21:15)
[2018-03-27] MEDS: PANTOPRAZOLE 40MG TAB (PROTONIX) PO SCH (08:48)
[2018-03-27] MEDS: **hydrALAZINE HCL** 25 MG TAB PO SCH ×3 (08:48→21:15)
[2018-03-27] MEDS: predniSONE 20 MG TAB PO SCH ×2 (08:48→21:14)
[2018-03-27] MEDS: HumaLOG INSULIN (NovoLOG) PER UNIT SC SCH ×4 (08:50→21:17)
[2018-03-27] MEDS: cefTRIAXone SOD 1 GM in D5W MINI-BAG PLUS 50 ML IV SCH (08:51)
[2018-03-27] MEDS: NS 1,000 ML IV SCH (08:51)
[2018-03-27] MEDS ORDERED: LEVEMIR (INSULIN DETEMIR) 1 UNITS/0.01ML SC SCH ×2 (09:00→21:00)
--- NOTE | 2018-03-27 09:00 | ECGEPIP ---
Stationary ECG Study [facility] - ED Test Date: 2018-03-25 Pat Name: DIMAS ZEE Department: Room: - Gender: M Pullman Conductor: : 1955 Requested By: Isaac Cheema Order Number: [id number] Reading MD: Hortencia Lindsay Measurements Intervals [place] Rate: 94 P: 63 SC: 131 QRS: 96 QRSD: 114 T: 78 QT: 340 QTc: 427 Interpretive Statements SINUS RHYTHM BORDERLINE RIGHT AXIS DEVIATION MODERATE INTRAVENTRICULAR CONDUCTION DELAY NO PRIOR FOR COMPARISON Electronically Signed On 03-27-2018 9:00:24 EST by Hortencia Lindsay
--- NOTE | 2018-03-27 09:02 | REP ---
Clinical: Cough and congestion . Comparison: 03/25/2018 . Findings: The mediastinum and cardiac silhouette are stable and within normal limits for portable technique. The lung green[place] are clear without acute consolidation, effusion, or pneumothorax. Skeletal structures are intact. Impression: No acute cardiopulmonary process appreciated. Electronically Signed by Bg Coreas MD 03/27/2018 08:54 A
--- NOTE | 2018-03-27 10:59 | REP ---
Clinical: Acute renal insufficiency with underlying chronic medical renal disease. Technique: Real time cook scale ultrasound examination using curved array transducer. Findings: The bilateral kidneys are mildly echogenic but relatively normal in contour, size, and reniform shape without hydronephrosis, obvious nephrolithiasis or renal mass lesion. Multiple bilateral cysts are noted. The right kidney measures 14.4 x 6.9 x 6.6 cm with the largest cyst noted in the mid pole cortex measuring 1.9 cm maximal diameter. The left kidney measures 12.6 x 5.9 x 6.1 cm with 1.8 cm upper pole cyst and 3.6 cm mid pole cortical cyst as well as smaller scattered cysts. The bladder is grossly unremarkable. Impression: Evidence for chronic medical renal disease and bilateral renal cysts as noted above. No evidence for hydronephrosis. Electronically Signed by Bg Coreas MD 03/27/2018 10:50 A
[2018-03-27] MEDS ORDERED: FUROSEMIDE 40 MG/4 ML VIAL (J1940) IV ONE (11:15)
[2018-03-27] MEDS ORDERED: PATIROMER SORBITEX CALCIUM 8.4 GM POWDER PACKET (VELTASSA) PO SCH (12:00)
[2018-03-27 12:34] LABS: APPEARANCE, URINE CLEAR (CLEAR); BACTERIA, URINE AUTO NEGATIVE (NEGATIVE); BILIRUBIN, URINE AUTO NEGATIVE (NEGATIVE); BLOOD, URINE BLOOD 1+ (NEGATIVE); COLOR, URINE STRAW (YELLOW); GLUCOSE, URINE (UA) AUTO 3+ mg/dL (NEGATIVE); KETONE, URINE AUTO NEGATIVE (NEGATIVE); LEUKOCYTE ESTERASE, URINE AUTO NEGATIVE (NEGATIVE); NITRITE, URINE AUTO NEGATIVE (NEGATIVE); PROTEIN, URINE AUTO 2+ mg/dL (NEGATIVE); RBC, URINE AUTO 2 /HPF (0-3); SPECIFIC GRAVITY URINE AUTO 1.014 (1.002-1.035); SQUAMOUS EPITHELIAL CELL UR AU 0 /HPF (0-6); UROBILINOGEN, URINE AUTO 0.2 mg/dL (0.0-2.0); WBC, URINE AUTO 0 /HPF (0-3)
[2018-03-27 12:47] LABS: CREATININE,RANDOM URINE 51.9 MG/DL
--- NOTE | 2018-03-27 13:31 | IPNPDOC ---
Text Note Date of Service The patient was seen on 03/27/18. NOTE Subjective: Patient states his dyspnea has improved however still has a produ ctive cough. No chest pain or palpitations. Objective: Vitals: (see below) General: No acute distress, laying comfortably in bed. HEENT: Moist mucous membranes. Neck: No JVD or lymphadenopathy Cardiac: RRR, No murmurs Pulm: Diminished breath sounds and wheezing b/l. Mild rhonchi. Abd: NT/ND + BS Ext: Trace edema. No cyanosis Labs (see below) Images: Renal ultrasound on 03/27/18 Impression: Evidence for chronic medical renal disease and bilateral renal cysts as noted above. No evidence for hydronephrosis. Chest x-ray on 03/27/18 Impression: No acute cardiopulmonary process appreciated. Assessment/Plan 1. Acute COPD exacerbation secondary to coronavirus with ? concominant bacterial process. On steroids, nebs, on Rocephin pending cultures. Afebrile. Dyspnea improving. Solu-Medrol changed to prednisone. 2. Hypertension controlled. Discontinue lisinopril for now given renal insufficiency and hyperkalemia. 3.Hyperkalemia- appreciate Dr. Kim's input. Lisinopril held for now. Veltassa ordered. 4. History of CKD stage III 5. History of depression on Lexapro 6. History of chronic pain on Lyrica and gabapentin DVT prophy: Heparin subcutaneous VS,Fishbone, I+O VS, Fishbone, I+O Laboratory Tests 03/27/18 05:36 Red Blood Count 3.12 L, Mean Corpuscular Volume 91.7, Mean Corpuscular Hemoglobin 29.8, Mean Corpuscular Hemoglobin Concent 32.5, Red Cell Distribution Width 13.4, Neutrophils (%) (Auto) 89.4 H, Lymphocytes (%) (Auto) 5.4 L, Monocytes (%) (Auto) 3.3, Eosinophils (%) (Auto) 0.0, Basophils (%) (Auto) 0.2, Neutrophils # (Auto) 13.9 H, Lymphocytes # (Auto) 0.8 L, Monocytes # (Auto) 0.5, Eosinophils # (Auto) 0.0, Basophils # (Auto) 0.0, Calcium Level 7.8 L Vital Signs Date Time Temp Pulse Resp B/P (MAP) Pulse Ox O2 Delivery O2 Flow Rate FiO2 03/27/18 09:00 3.0 03/27/18 08:48 136/63 03/27/18 06:00 98.2 79 18 93 Nasal Cannula I&O- Last 24 Hours up to 6 AM 03/27/18 06:00 Intake Total 2970 ml Output Total 3350 ml Balance -380 ml ALINE FRANK MD Mar 27, 2018 13:31
[2018-03-27 14:00] VITALS: BP 135/74
[2018-03-27] MEDS: PERCOCET 5MG/325MG TAB PO PRN (21:14)
[2018-03-27 22:00] VITALS: BP 128/81
[2018-03-28] MEDS: PERCOCET 5MG/325MG TAB PO PRN ×2 (02:24→21:01)
[2018-03-28] MEDS: IPRATROPIUM 0.5MG/ALBUTEROL 2.5MG INH SOL UD 3ML (DUONEB)(J7620) NEB PRN (02:34)
[2018-03-28] MEDS ORDERED: guaiFENesin SYRUP 200 MG/10 ML UDC PO PRN (02:45)
[2018-03-28 06:00] VITALS: BP 124/77
--- NOTE | 2018-03-28 06:23 | CR ---
DATE OF CONSULTATION: 03/27/2018 REASON FOR CONSULTATION: Acute renal failure superimposed on chronic kidney disease in this gentleman who is admitted with shortness of breath. HISTORY OF PRESENT ILLNESS: Mr. Ni is a 62-year-old gentleman with known history of chronic kidney disease stage III, chronic pulmonary obstructive disease (COPD), diastolic congestive heart failure by echocardiogram done last month, history of iron deficiency anemia and type 2 diabetes. The patient reports that he was seen by hematology for anemia and was treated with intravenous iron infusions which he received on March 16 and March 23. Following the second dose of intravenous iron he developed progressive shortness of breath and came to the emergency room and got admitted with a presumed diagnosis of chronic pulmonary obstructive disease (COPD) exacerbation. The patient is also noticed to have worsening kidney function and is currently receiving IV fluid normal saline at 100 mL per hour. A nephrology consultation was requested this morning and the patient is seen on his bedside. PAST MEDICAL AND SURGICAL HISTORY: Significant for: 1. History of longstanding type 2 diabetes. 2. Hypertension. 3. History of stage III of chronic kidney disease with baseline serum creatinine between 1.3 and 1.5 mg/dl. 4. History of iron deficiency anemia. 5. History of rheumatoid arthritis. 6. Hypothyroidism. 7. History of COPD with hypoxemia on home oxygen 3 liters. MEDICATIONS: His home medications include: - hydralazine 25 mg three times a day - Lyrica 50 mg twice a day - omeprazole 20 mg daily - lisinopril 5 mg daily - Synthroid 200 mcg daily - Lasix 40 mg daily - Lexapro 20 mg daily - atorvastatin 40 mg daily - Lantus insulin 50 units twice a day ALLERGIES: The patient has no known drug allergies. PERSONAL AND SOCIAL HISTORY: The patient is an active smoker and denies any alcohol or drug use. He lives with his family. FAMILY HISTORY: Family history is negative for end-stage renal disease. REVIEW OF SYSTEMS: General: The patient denies any fever or chills. He feels that he became more short of breath after receiving the second dose of intravenous iron. He has chronic hypoxemia and has been on home oxygen. Ears, nose and throat are unremarkable. Cardiovascular system: Significant for diastolic congestive heart failure by echocardiogram done just last month. Respiratory system is significant for chronic hypoxemia and COPD. Gastrointestinal (GI) system is significant for history of gastroesophageal reflux disease. He denies any nausea, vomiting or abdominal pain. There is no history of black colored stools or rectal bleeding. Genitourinary () system is negative for dysuria or hematuria. Endocrine system is significant for hypothyroidism and type 2 diabetes. Hematological system is significant for anemia with iron deficiency and he received two doses of intravenous iron. Musculoskeletal system is negative for any significant lower extremity edema. He does have history of rheumatoid arthritis. Skin is negative for rash or ulcers. Neurological system is negative for seizures or stroke. PHYSICAL EXAMINATION: VITAL SIGNS: Temperature 98.2 degrees Fahrenheit, heart rate 80 per minute and respiratory rate 18 per minute. Blood pressure 136/63 mmHg and oxygen saturation 93% on 2-3 liters oxygen. HEENT: His head is atraumatic. There is no oral thrush or ulcers. Pupils are equal and reactive to light and sclera is anicteric. Nose and throat are unremarkable. NECK: Neck veins are at least 9-10 cm above sternal angle and there is no thyroid enlargement. Trachea is midline. HEART: Sounds are regular with a systolic murmur grade 2/6 and without a pericardial friction rub. LUNGS: Diminished breath sounds and bilateral expiratory wheezing. ABDOMEN: Abdomen is obese, soft and nontender and without palpable organomegaly. EXTREMITIES: No cyanosis or clubbing. SKIN: No rash or ulcers. NEUROLOGIC: Neurologically he is awake, alert and oriented times three. LABORATORY DATA: His WBC count today is 15.5, hemoglobin 9.3 and hematocrit 28.6. Urinalysis showed 2+ protein, 3+ glucose of 1+ blood. There is only 2 rbcs. His blood gas on the day of admission showed a pH of 7.34, pCO2 55.6, pO2 107 and bicarb 27. His chemistry on admission showed a BUN of 24 and creatinine 1.45. His electrolytes were within normal range. Yesterday his glucose 403, sodium 131 and potassium 5.1. BUN 38 and creatinine 1.75. Today his sodium is 133, potassium 5.9, CO2 28, BUN 42 and creatinine 1.66. Glucose is 324 and calcium 7.8. IMAGING: Chest x-ray done this morning was reviewed independently. He has mild cardiomegaly but no pleural effusion, infiltrate or effusions noted. He also had a renal ultrasound this morning which did not show any hydronephrosis. PROBLEMS: 1. Acute renal failure superimposed on chronic kidney disease. The patient is known to have stage III of chronic kidney disease at baseline with creatinine between 1.3 and 1.5 mg/dl. Yesterday his creatinine was up to 1.75 and today it is 1.66. He is receiving intravenous (IV) fluid while his volume status is decompensated. I am going to stop his IV fluid for now. He already had a renal ultrasound which did not show any evidence of hydronephrosis and urinalysis did not show any evidence for acute glomerulonephritis. He does have proteinuria most likely related to diabetic nephropathy. 2. Hyperkalemia. Most likely this is related to acute renal failure and hyperglycemia. The patient has already received a dose of Veltassa and his electrolytes will be checked tomorrow morning. In addition, I am also going to give him a dose of Lasix 40 mg today. 3. Acute on chronic diastolic congestive heart failure. The patient has decompensated volume status clinically with elevated neck veins and hypervolemia. His IV fluid is being stopped and a dose of Lasix 40 mg intravenously is being ordered. Will monitor his urine output closely. His PEREZ inhibitor has already been stopped in view of hyperkalemia and acute renal failure. 4. Anemia. The patient is known to have iron deficiency anemia and has recently received two doses of intravenous iron. At this point we will watch and monitor without any intervention. 5. Diabetes. His diabetes is not very well controlled due to steroid use. He is receiving insulin per sliding scale in addition to his Levemir insulin which has been increased to 80 units in a.m. and 50 units in p.m.. Thank you for involving me in the care of Mr. Ni. I will follow him along with you.
[2018-03-28] MEDS: LEVOTHYROXINE 100MCG TABLET (0.1MG) PO SCH (06:33)
[2018-03-28] MEDS: HEPARIN SOD (PORCINE) 5000 UNITS/ML VIAL SC SCH ×3 (06:33→20:59)
[2018-03-28] MEDS ORDERED: ONDANSETRON 4MG/2ML VIAL (J2405) IV PRN (07:15)
[2018-03-28] MEDS: IPRATROPIUM 0.5MG/ALBUTEROL 2.5MG INH SOL UD 3ML (DUONEB)(J7620) NEB SCH ×4 (07:16→20:57)
[2018-03-28 07:17] LABS: HEMATOCRIT 29.9 % (42.0-52.0); HEMOGLOBIN 9.4 g/dl (13.5-17.5); MEAN CORPUSCULAR HEMOGLOBIN 29.5 pg (27.0-33.0); MEAN CORPUSCULAR HGB CONC 31.4 g/dl (32.0-36.5); MEAN CORPUSCULAR VOLUME 93.7 fl (80.0-96.0); PLATELET COUNT, AUTOMATED 289 10^3/uL (150-450); RED BLOOD COUNT 3.19 10^6/uL (4.30-6.10); WHITE BLOOD COUNT 13.9 10^3/uL (4.0-10.0)
[2018-03-28 07:48] LABS: CALCIUM LEVEL 7.9 MG/DL (8.8-10.2); CREATININE FOR GFR 1.66 MG/DL (0.70-1.30); GLOMERULAR FILTRATION RATE 45.1 (>49); POTASSIUM SERUM 5.8 MEQ/L (3.5-5.1)
[2018-03-28] MEDS: HumaLOG INSULIN (NovoLOG) PER UNIT SC SCH ×4 (07:48→21:00)
[2018-03-28] MEDS: PREGABALIN 50 MG CAP (LYRICA) PO SCH ×2 (07:49→21:00)
[2018-03-28] MEDS: FAMOTIDINE 20 MG TAB PO SCH ×2 (07:49→21:00)
[2018-03-28] MEDS: PANTOPRAZOLE 40MG TAB (PROTONIX) PO SCH (07:49)
[2018-03-28] MEDS: GABAPENTIN 300 MG CAP PO SCH ×3 (07:49→21:00)
[2018-03-28] MEDS: **hydrALAZINE HCL** 25 MG TAB PO SCH ×3 (07:49→21:01)
[2018-03-28] MEDS: cefTRIAXone SOD 1 GM in D5W MINI-BAG PLUS 50 ML IV SCH (07:50)
[2018-03-28] MEDS: DOCUSATE SODIUM 100 MG CAP PO SCH ×2 (07:50→21:00)
[2018-03-28] MEDS: ESCITALOPRAM OXALATE 10 MG TAB (LEXAPRO) PO SCH (07:50)
[2018-03-28] MEDS: ATORVASTATIN 20 MG TAB PO SCH (07:50)
[2018-03-28] MEDS: LEVEMIR (INSULIN DETEMIR) 1 UNITS/0.01ML SC SCH (07:51)
[2018-03-28] MEDS ORDERED: predniSONE 20 MG TAB PO SCH (09:00)
[2018-03-28] MEDS: FUROSEMIDE 40 MG TAB PO SCH (09:55)
[2018-03-28] MEDS ORDERED: PATIROMER SORBITEX CALCIUM 8.4 GM POWDER PACKET (VELTASSA) PO ONE ×2 (10:00→16:00)
--- NOTE | 2018-03-28 11:47 | IPNPDOC ---
Date Seen The patient was seen on 03/28/18. Progress Note SUBJECTIVE: Patient seen and examined this morning at bedside. He has no complaints. He states that he feels better this morning. The chest tightness has improved significantly. He said and that he has to wait one more day before he can be discharged. When discussing the case with nephrology to this morning he states the patient has gotten an echocardiogram outpatient which showed that he had increased IVC and has congestive heart failure. He tolerated the IV Lasix and diuresed about 4 L the day before. His potassium this morning was still elevated at 5.8. Will order [facility] has a one-time dose now and repeat at 1600 later this evening. We'll continue with the torsemide 40 mg by mouth daily which he might continue outpatient as well. Encouraged for fluid restriction about 1800 mL daily. He has no other complaints this morning. OBJECTIVE PHYSICAL EXAMINATION: VITAL SIGNS: Please see below. GENERAL: He is awake, alert and oriented times three. He is in no respiratory distress. HEENT: Atraumatic. Pupils are equal, round. No jaundice. Extraocular muscles are intact. Ear nose and throat are normal. Mouth mucosa is dry. No JVD and no bruits. LUNGS: Lower lobes expiratory wheezing but no crackles. (Improved) Heart: S1, S2, regular no murmur. ABDOMEN: Soft, bowel sounds are positive and nontender. EXTREMITIES: No edema. NEUROLOGICAL: Nonfocal. SKIN: No rash. PSYCHOLOGICAL: No acute psychosis. LABORATORY DATA, IMAGING STUDIES, MICROBIOLOGY: Please see below. DVT prophylaxis ordered?: Yes heparin ASSESSMENT AND PLAN: 62-year-old male with a history of COPD on 3 liters of oxygen at home presented with worsening shortness of breath and coughing for 3 days. Acute on chronic respiratory failure secondary to COPD exacerbation -Respiratory panel positive for Coronavirus -Sputum cultures-negative -prednisone taper -Continue oxygen maintain sats between 80 and 92 -DuoNeb's jacob and prn Acute on congestive heart failure -diuresed about 4 L the day before -IV Lasixx1 -c/w Lasix 40 mg daily PO Hyponatremia euvolemic -Pseudohyponatremia -Sodium this morning is 131 with a glucose of 403 his corrected sodium is 136. Hyperkalemia -recheck this AM. -possible due to Acute on CKD -Nephrology following -ValtessaX1 this AM and another at 1600. Hypertension (controlled) -c/w Lasix 40 mg, and hydralazine 25 mg -held Lisinopril 5 mg due to kidney function Type 2 diabetes -c/w Levemir 100 units a.m. and 70 units p.m for now while on steroids Hypothyroidism -c/w Synthroid 200 g CKD stage 3 Acid reflux -c/w PPI and ranitidine Depression -c/w Lexapro 20 mg Chronic pain -c/w Lyrica 50 mg, gabapentin 600 mg DVT prophylaxis -Heparin 5000 units Disposition pending potassium level and clinical improvement possible discharge in 24 hours VS, I&O, 24H, Fishbone Vital Signs/I&O Vital Signs Date Time Temp Pulse Resp B/P (MAP) Pulse Ox O2 Delivery O2 Flow Rate FiO2 03/28/18 02:55 18 Nasal Cannula 3.0 03/27/18 22:00 98.2 81 128/81 (97) 97 I&O- Last 24 Hours up to 6 AM 03/28/18 06:00 Intake Total 1320 ml Output Total 3775 ml Balance -2455 ml Laboratory Data 24H LABS Laboratory Tests 2 03/27/18 11:36: Urine Appearance CLEAR, Urine Color STRAW, Urine pH 6.0, Urine Specific [place] 1.014, Urine Protein 2+H, Urine Glucose (UA) 3+H, Urine Ketones NEGATIVE, Urine Urobilinogen 0.2, Urine Bilirubin NEGATIVE, Urine Leukocyte Esterase NEGATIVE, Urine Blood 1+H, Urine Nitrite NEGATIVE, Urine WBC (Auto) 0, Urine RBC (Auto) 2, Urine Hyaline Casts (Auto) 0, Urine Bacteria (Auto) NEGATIVE, Urine Squamous Epithelial Cells 0, Urine Sperm (Auto) , Urine Random Creatinine 51.9, Urine Random Sodium 45, Urine Random Chloride 48 03/27/18 11:52: Bedside Glucose (Misc Panel) 253H 03/27/18 17:14: Bedside Glucose (Misc Panel) 355H 03/27/18 21:04: Bedside Glucose (Misc Panel) 381H Microbiology Microbiology 03/26/18 Blood Culture - Preliminary, Resulted No growth after 24 hours . All specim... 03/26/18 Blood Culture - Preliminary, Resulted No growth after 24 hours . All specim... 03/26/18 Gram Stain - Final, Resulted 03/26/18 Sputum Culture, Resulted Pending 03/25/18 Respiratory Virus Panel (PCR) ([facility]) - Final, Complete Coronavirus Oc43 GME ATTESTATION GME ATTESTATION My faculty preceptor for this patient encounter was physically present during the encounter and was fully available. All aspects of the patient interview, examination, medical decision making process, and medical care plan development were reviewed and approved by the faculty preceptor. The faculty preceptor is aware and concurs with the plan as stated in the body of this note and will attest to such by his/her cosignature. SATNAM FREDERICK DO Mar 28, 2018 07:00
--- NOTE | 2018-03-28 13:17 | IPN ---
DATE OF VISIT: 03/28/2018 Mr. Ni is seen this morning on his bedside. He was very short of breath yesterday and felt to be in decompensated congestive heart failure. He was given intravenous (IV) Lasix with good response, and he made 4.3 liters urine output. His dyspnea has improved significantly. Today, he is sitting in the chair at the time of my visit and is feeling much better. He denies any nausea, vomiting, hemoptysis, fever, or chills. On physical examination, temperature 97.9 degrees Fahrenheit, heart rate 88 per minute, and respiratory rate 20 per minute. Blood pressure 124/77 mmHg and oxygen saturation 96% on room air. INTAKE AND OUTPUT RECORDS: From yesterday showed total intake 1600 and output 4300. His head is atraumatic. Neck veins are still mildly distended. There is no oral thrush or ulcers. HEART: Sounds are regular. LUNGS: With bilateral air entry and minimal expiratory wheezing. ABDOMEN: Obese, soft, and nontender, and bowel sounds are normal. EXTREMITIES: Have no cyanosis or clubbing Neurologically, he is awake, alert, and oriented times three. Today's laboratories show: WBC count 13.9, hemoglobin 9.4, and hematocrit 29.9. Sodium 134, potassium 5.8, CO2 27, BUN 47, and creatinine 1.66. Glucose is 398 and calcium 7.9. PROBLEMS: 1. Acute renal failure superimposed on chronic kidney disease. No change in kidney function since yesterday. He had good urine output, and we anticipate some improvement in kidney function over the next couple of days. His baseline creatinine has been between 1.3 to 1.5 mg/dl. 2. Dyspnea and shortness of breath. The patient was decompensated and improved significantly with diuresis. He is being placed on usual dose of Lasix 40 mg daily, which he was taking prior to admission. 3. Hyperkalemia. No significant change with one dose of Veltassa. He is going to be given two doses of Veltassa today and should continue with low-potassium diet. 4. Anemia. The patient did receive IV iron during last couple of weeks. At this point, his anemia is stable, and he will followup with hematology as outpatient.
[2018-03-28 14:00] VITALS: BP 132/72
[2018-03-28] MEDS ORDERED: LEVEMIR (INSULIN DETEMIR) 1 UNITS/0.01ML SC SCH (21:00)
[2018-03-28 22:00] VITALS: BP 134/78
[2018-03-29] MEDS: LEVOTHYROXINE 100MCG TABLET (0.1MG) PO SCH (05:26)
[2018-03-29] MEDS: HEPARIN SOD (PORCINE) 5000 UNITS/ML VIAL SC SCH (05:26)
[2018-03-29 06:00] VITALS: BP 130/78
[2018-03-29 06:12] LABS: HEMATOCRIT 29.3 % (42.0-52.0); HEMOGLOBIN 9.3 g/dl (13.5-17.5); MEAN CORPUSCULAR HEMOGLOBIN 29.3 pg (27.0-33.0); MEAN CORPUSCULAR HGB CONC 31.7 g/dl (32.0-36.5); MEAN CORPUSCULAR VOLUME 92.4 fl (80.0-96.0); PLATELET COUNT, AUTOMATED 284 10^3/uL (150-450); RED BLOOD COUNT 3.17 10^6/uL (4.30-6.10)
[2018-03-29 06:33] LABS: CALCIUM LEVEL 8.6 MG/DL (8.8-10.2); CREATININE FOR GFR 1.37 MG/DL (0.70-1.30); GLOMERULAR FILTRATION RATE 56.2 (>49); MAGNESIUM LEVEL 1.9 MG/DL (1.8-2.4)
[2018-03-29] MEDS: ESCITALOPRAM OXALATE 10 MG TAB (LEXAPRO) PO SCH (08:08)
[2018-03-29] MEDS: PANTOPRAZOLE 40MG TAB (PROTONIX) PO SCH (08:08)
[2018-03-29] MEDS: DOCUSATE SODIUM 100 MG CAP PO SCH (08:08)
[2018-03-29] MEDS: cefTRIAXone SOD 1 GM in D5W MINI-BAG PLUS 50 ML IV SCH (08:08)
[2018-03-29] MEDS: ATORVASTATIN 20 MG TAB PO SCH (08:08)
[2018-03-29] MEDS: FAMOTIDINE 20 MG TAB PO SCH (08:08)
[2018-03-29] MEDS: GABAPENTIN 300 MG CAP PO SCH (08:08)
[2018-03-29 08:09] VITALS: BP 130/78
[2018-03-29] MEDS: FUROSEMIDE 40 MG TAB PO SCH (08:09)
[2018-03-29] MEDS: **hydrALAZINE HCL** 25 MG TAB PO SCH (08:09)
[2018-03-29] MEDS: PREGABALIN 50 MG CAP (LYRICA) PO SCH (08:09)
[2018-03-29] MEDS: LEVEMIR (INSULIN DETEMIR) 1 UNITS/0.01ML SC SCH (08:10)
[2018-03-29] MEDS: HumaLOG INSULIN (NovoLOG) PER UNIT SC SCH (08:11)
[2018-03-29] MEDS: IPRATROPIUM 0.5MG/ALBUTEROL 2.5MG INH SOL UD 3ML (DUONEB)(J7620) NEB SCH ×2 (08:26→11:39)
[2018-03-29] MEDS ORDERED: PRED10TA2 PO (08:35)
[2018-03-29] MEDS ORDERED: predniSONE 20 MG TAB PO ONE (10:45)
--- NOTE | 2018-03-29 14:00 | DS.PDOC ---
Discharge Summary General Date of Admission Mar 25, 2018 at 18:37 Date of Discharge 03/29/[address] Renard Garcia PROCEDURES PERFORMED DURING STAY: None. ADMITTING DIAGNOSES: Acute on chronic respiratory failure. COPD exacerbation. Coronavirus OC43 respiratory infection. Hypertension. Type 2 diabetes. CKD stage 3 DISCHARGE DIAGNOSES: Acute on chronic respiratory failure secondary to COPD exacerbation due to Coronavirus OC43 Acute on congestive heart failure Hyponatremia euvolemic due to Hyperglycemia Hypertension Type 2 diabetes Hypothyroidism CKD stage 3 Acid reflux Depression Chronic pain COMPLICATIONS/CHIEF COMPLAINT: Copd Exacerbation. HISTORY OF PRESENT ILLNESS: The patient is a 62-year-old male with a history of COPD. He is using 3 liters of oxygen at home constant grethel, presented to the hospital for evaluation of the above complaints. The history is provided by himself. Per the patient he still smokes a few cigarettes a day. Three days ago he was given IV iron infusion for his iron deficient anemia. Since then he was not feeling good and has a coughing, shortness of breath and chest pain which related to shortness of breath. His breathing condition is getting worse gradually and decided to come to the emergency room for evaluation. In the ER his initial workup was not significant however in the ER his influenza screen was positive for coronavirus OC43 positive. Medicine service was called for admission. HOSPITAL COURSE: The patient was admitted he was started on a prednisone taper and IV antibiotics. Chest congestion did improve but he continued to have some shortness of breath. nephrology was called for the patient did have hyponatremia and some hyperkalemia as well. While discussing the case with nephrology it was elaborated that the patient had an outpatient echocardiogram that showed that he had increased IVC and he has a possible systolic dysfunction. He was given a one-time Lasix injection 40 mg and was restarted on his home Lasix 40mg by mouth. On the day of discharge, all of the symptoms resolved he was advised to continue with the prednisone taper as prescribed and to monitor his sugar levels while on the prednisone for they will be elevated. He is to use the NovoLog insulin sliding scale for coverage. He was also advised to follow-up with his primary care provider his hand tacker. He was also advised that if the symptoms were to return or worsen to call his PCP or return to the ER. DISCHARGE MEDICATIONS: Please see below. ALLERGIES: Please see below. PHYSICAL EXAMINATION ON DISCHARGE: VITAL SIGNS: Please see below. GENERAL: awake, alert and oriented times three. He is in no respiratory distress. HEENT: Atraumatic. Pupils are equal, round. No jaundice. Extraocular muscles are intact. Ear nose and throat are normal. Mouth mucosa is dry. No JVD and no bruits. LUNGS: Minimal lower lobes expiratory wheezing but no crackles. (Improved) Heart: S1, S2, regular no murmur. ABDOMEN: Soft, bowel sounds are positive and nontender. EXTREMITIES: No edema. NEUROLOGICAL: Nonfocal. SKIN: No rash. PSYCHOLOGICAL: No acute psychosis. LABORATORY DATA: Please see below. IMAGIN03/25/2018 Chest x-ray Impression: No acute disease. 03/27/2018 Renal ultrasound Impression: Evidence for chronic medical renal disease and bilateral renal cysts as noted above. No evidence for hydronephrosis. Chest x-ray Impression: No acute cardiopulmonary process appreciated. PROGNOSIS: Fair ACTIVITY: As tolerated. DIET:renal diet plus the fluid restriction of 1800 mL/24 hours DISPOSITION: Home, Self-Care. DISCHARGE INSTRUCTIONS: 1. Follow-up with PCP in 7-10 days 2. Follow-up with nephrology 10-14 days 3. Complete prednisone taper as prescribed, followup fingerstick at home for better glycemic control. 4. Follow a renal diet plus the fluid restriction of 1800 mL/24 hours 5. Check kidney function with primary. 6. If symptoms return or worsen please call your PCP or return to the ER. ITEMS TO FOLLOWUP ON OUTPATIENT: 1. COPD - on prednisone taper 2. Congestive heart failure -restarted Lasix possibly recheck kidney function 3. Diabetes mellitus - on prednisone taper make sure sugars under control 4. Medical management - 1 new Medication- prednisone taper DISCHARGE CONDITION: Stable. TIME SPENT ON DISCHARGE: Greater than 35 minutes. Vital Signs/I&Os Vital Signs Date Time Temp Pulse Resp B/P (MAP) Pulse Ox O2 Delivery O2 Flow Rate FiO2 03/29/18 08:09 130/78 03/29/18 08:00 3.0 03/29/18 06:00 98.6 81 18 94 Nasal Cannula I&O- Last 24 Hours up to 6 AM 03/29/18 06:00 Intake Total 2150 ml Output Total 3450 ml Balance -1300 ml Laboratory Data Labs 24H Laboratory Tests 2 03/28/18 17:00: Bedside Glucose (Misc Panel) 380H 03/28/18 20:38: Bedside Glucose (Misc Panel) 334H 03/29/18 05:49: Nucleated Red Blood Cells % (auto) 0.1H, Anion Gap 6L, Glomerular Filtration Rate 56.2, Blood Urea Nitrogen 40H, Creatinine 1.37H, Sodium Level 138, Potassium Level 4.0#, Chloride Level 100, Carbon Dioxide Level 32, Calcium Level 8.6L, Magnesium Level 1.9 CBC/BMP Laboratory Tests 03/29/18 05:49 Red Blood Count 3.17 L, Mean Corpuscular Volume 92.4, Mean Corpuscular Hemoglobin 29.3, Mean Corpuscular Hemoglobin Concent 31.7 L, Red Cell Distribution Width 13.2, Calcium Level 8.6 L FSBS Laboratory Tests Test 03/28/18 17:00 03/28/18 20:38 Range/Units Bedside Glucose (Misc Panel) 380 334 80-115 MG/DL Microbiology Microbiology 03/26/18 Blood Culture - Preliminary, Resulted No Growth after 72 hours. All specime... 03/26/18 Blood Culture - Preliminary, Resulted No Growth after 72 hours. All specime... 03/26/18 Gram Stain - Final, Complete 03/26/18 Sputum Culture - Final, Complete 03/25/18 Respiratory Virus Panel (PCR) ([facility]) - Final, Complete Coronavirus Oc43 Discharge Medications Scheduled (Marie Reyes) 300 Unit/Ml Inj, 50 UNIT SC BID, (Reported) Atorvastatin Calcium (Atorvastatin Calcium) 40 Mg Tab, 40 MG PO DAILY, (Reported) Escitalopram Oxalate (Lexapro) 20 Mg Tab, 20 MG PO DAILY, (Reported) Furosemide (Furosemide) 40 Mg Tab, 40 MG PO DAILY, (Reported) Gabapentin (Gabapentin) 600 Mg Tab, 600 MG PO TID, (Reported) Hydralazine HCl (Hydralazine HCl) 25 Mg Tab, 25 MG PO TID, (Reported) Insulin Aspart (Novolog Flexpen) 100 Unit/Ml Inj, 1 DOSE SC ACHS, (Reported) PER SLIDING SCALE Levothyroxine Sodium (Synthroid) 150 Mcg Tab, 200 MCG PO DAILY, (Reported) Lisinopril (Lisinopril) 5 Mg Tab, 5 MG PO DAILY, (Reported) Omeprazole (Omeprazole) 20 Mg Cap, 20 MG PO DAILY, (Reported) Prednisone (Prednisone) 10 Mg Tab, 10 MG PO TAPER Take 4 tabs daily x 3 days, then 3 tabs daily x 3 days, then 2 tabs daily x 3 days, then 1 tab daily x 3 days and stop Pregabalin (Lyrica) 50 Mg Cap, 50 MG PO BID, (Reported) Ranitidine HCl (Ranitidine HCl) 150 Mg Cap, 1 CAP PO BID, (Reported) Salmeterol/Fluticasone (Advair Diskus 100-50 Mcg/Dose) 28 Puff/Inhaler Aerp, 1 PUFF INH DAILY, (Reported) Tiotropium [place] Monohydrate (Spiriva Handihaler) 5 Inhalation/Inhaler Powd, 1 DOSE INH BID, (Reported) Scheduled PRN Albuterol Sulfate (Albuterol Sulfate) 2.5 Mg/3 Ml Nebu, 2.5 MG INH TID PRN for SHORTNESS OF BREATH, (Reported) Albuterol Sulfate (Proair Hfa) 108 Mcg/Act Aer, 2 PUFF INH Q4H PRN for S OB/WHEEZING, (Reported) Ipratropium [place] (Ipratropium [place]) 0.5 Mg/2.5 Ml Soln, 0.5 MG INH TID PRN for SHORTNESS OF BREATH, (Reported) MIXES WITH ALBUTEROL Allergies Coded Allergies: No Known Allergies (Unverified , 03/18/17) GME ATTESTATION GME ATTESTATION My faculty preceptor for this patient encounter was physically present during the encounter and was fully available. All aspects of the patient interview, examination, medical decision making process, and medical care plan development were reviewed and approved by the faculty preceptor. The faculty preceptor is a chicas and concurs with the plan as stated in the body of this note and will attest to such by his/her cosignature. ATTENDING NOTE I have both independently examined this patient as well as reviewed the note I have discussed in detail the findings and plan of treatment as documented in the note. I will continue to follow the patient and offer further guidance to the patients care as necessary during this hospital stay. SATNAM Sanchez MD, DO Mar 29, 2018 14:00 COMPA RACHEL MD Mar 30, 2018 12:50
--- NOTE | 2018-03-30 06:17 | IPN ---
DATE: 03/29/2018 Mr. Ni is seen this morning on his bedside. He is feeling much better today and his dyspnea is back to baseline. He has been on home oxygen. He denies any fever, chills, nausea or vomiting. He was diuresed because of decompensated congestive heart failure which helped with improvement of his symptoms. He does have chronic lung disease with chronic obstructive pulmonary disease (COPD) and has been on home oxygen. PHYSICAL EXAMINATION: Temperature 98.6 degrees Fahrenheit, heart rate 80 per minute and respiratory rate 18 per minute. Blood pressure 130/78 mmHg and oxygen saturation 94% on 3 liters oxygen. His head is atraumatic. Neck is supple and jugular venous distention (JVD) does not seem to be significantly elevated. He has no oral thrush or ulcers. Heart sounds are regular and lungs have improved air entry with minimal expiratory wheezing. Abdomen: Obese, soft and nontender. Extremities: Have no cyanosis or clubbing. Neurologically he is awake, alert and oriented times three. Today's labs show WBC count 15.0, hemoglobin 9.3 and hematocrit 29.3. Platelets 284. Sodium 138, potassium 4.0, CO2 32, BUN 40 and creatinine 1.37. Glucose 154 and calcium 8.6. PROBLEMS: 1. Acute renal failure superimposed on chronic kidney disease. Kidney function is back to baseline. His creatinine did go up to 1.75 on 03/26/2018 and has now improved. Most likely his acute renal failure was related to decompensated congestive heart failure. 2. Is acute on chronic diastolic congestive heart failure. The patient has known diastolic congestive heart failure by recent echocardiogram. His volume status was significantly decompensated and improved with intravenous Lasix use. He is back on his daily dose of Lasix 40 mg. He is being advised to weigh himself at home and maintain his weight at present level. 3. Hyperkalemia: Improved with a Veltassa. The patient is being advised to stay off lisinopril for now. 4. Anemia:. The patient has history of iron deficiency anemia and recently received intravenous doses of iron per hematology. He will follow up as an outpatient. DISPOSITION: From a renal standpoint, the patient can be discharged to home today and he will follow up in my office as per previously scheduled appointment.
== END 2018-03-29 11:45 | disposition home or self-care (01) | DRG 190 ==
LOC: M ED 13:09 → EDBD 13:09 → M ED INP 18:37 → M MSPAV 03-26 00:12
PROVIDERS: ADMIT Hospitalist; ATTEND Hospitalist
DX: J44.1 Chronic obstructive pulmonary disease with (acute) exacerbation (principal); I50.33 Acute on chronic diastolic (congestive) heart failure; J96.20 Acute and chronic respiratory failure, unspecified whether with hypoxia or hypercapnia; N17.9 Acute kidney failure, unspecified; I13.0 Hypertensive heart and chronic kidney disease with heart failure and stage 1 through stage 4 chronic kidney disease, or unspecified chronic kidney disease; E87.1 Hypo-osmolality and hyponatremia; N18.3 Chronic kidney disease, stage 3 (moderate); E03.9 Hypothyroidism, unspecified; K21.9 Gastro-esophageal reflux disease without esophagitis; E11.65 Type 2 diabetes mellitus with hyperglycemia; B97.29 Other coronavirus as the cause of diseases classified elsewhere; F17.210 Nicotine dependence, cigarettes, uncomplicated; E87.5 Hyperkalemia; Z79.4 Long term (current) use of insulin; Z79.899 Other long term (current) drug therapy; M06.9 Rheumatoid arthritis, unspecified; D50.9 Iron deficiency anemia, unspecified; F32.9 Major depressive disorder, single episode, unspecified; G89.29 Other chronic pain

== ENCOUNTER → 2018-04-05 | Outpatient (REF) | payer MEDICARE ==
[~2018-04-05] MED LIST changes: +RANI150C PO
[2018-04-05 21:37] LABS: ALBUMIN 2.4 GM/DL (3.2-5.2); ALT/SGPT 23 U/L (12-78); BILIRUBIN,DIRECT < 0.1 MG/DL (0.0-0.2); BILIRUBIN,TOTAL 0.3 MG/DL (0.2-1.0)
== END ==
LOC: M LAB REF 17:11
PROVIDERS: ATTEND Internal Medicine Nephrology
DX: R94.5 Abnormal results of liver function studies (principal)

== ENCOUNTER → 2018-04-07 | Outpatient (REF) | payer MEDICARE ==
[~2018-04-07] MED LIST changes: +HYDR200T3 PO; +PARO10TA3 PO; +SUCR1SS PO; +TRUL10IN SQ; +VITA50005 PO
[2018-04-07 12:29] LABS: C REACTIVE PROTEIN QUANTITATIV 11.3 MG/DL (0.00-0.30); FREE T4 0.83 NG/DL (0.76-1.46); THYROID STIMULATING HORMONE 36.2 uIU/ML (0.358-3.740)
[2018-04-09 00:07] LABS: ANA (HEP2) Negative (.)
== END ==
LOC: M SFHCPLAZ 09:45
PROVIDERS: ATTEND Internal Medicine Rheumatology
DX: E03.9 Hypothyroidism, unspecified (principal); M05.79 Rheumatoid arthritis with rheumatoid factor of multiple sites without organ or systems involvement
CPT/HCPCS: 36415; 84439; 84443; 85652; 86038; 86140; G0463

== ENCOUNTER 2018-05-02 07:46 | Day surgery (SDC) | payer MEDICARE ==
[~2018-05-02] VITALS: Ht 172.7 cm; Wt 93.8 kg
[~2018-05-02 07:46] MED LIST changes: +NS 1,000 ML IV ONE; +PROPOFOL 500 MG/50 ML VIAL As Ordered ONE
[2018-05-02] MEDS ORDERED: LIDOCAINE 2% INJ 100 MG/5 ML SDV (FOR ANES.) As Ordered ONE ×2 (08:11→09:36)
[2018-05-02] MEDS ORDERED: ALBUTEROL SULFATE 2.5 MG/0.5 ML INH NEB SOLN As Ordered ONE (08:57)
[2018-05-02] MEDS ORDERED: ALBUTEROL SULFATE 2.5 MG/0.5 ML INH NEB SOLN INH ONE (09:15)
[2018-05-02 09:19] LABS: HEMATOCRIT 23.7 % (42.0-52.0); HEMOGLOBIN 7.5 g/dl (13.5-17.5); MEAN CORPUSCULAR HEMOGLOBIN 29.2 pg (27.0-33.0); MEAN CORPUSCULAR HGB CONC 31.6 g/dl (32.0-36.5); MEAN CORPUSCULAR VOLUME 92.2 fl (80.0-96.0); PLATELET COUNT, AUTOMATED 260 10^3/uL (150-450); RED BLOOD COUNT 2.57 10^6/uL (4.30-6.10); WHITE BLOOD COUNT 8.4 10^3/uL (4.0-10.0)
[2018-05-02 09:46] LABS: CALCIUM LEVEL 8.3 MG/DL (8.8-10.2); CREATININE FOR GFR 1.84 MG/DL (0.70-1.30); PERCENT SATURATION 17.8 % (19.7-50.0); POTASSIUM SERUM 4.1 MEQ/L (3.5-5.1)
--- NOTE | 2018-05-02 10:24 | ROOR ---
Patient Name: Rj Ni Procedure Date: 05/02/2018 9:25 AM Date of : 1955 Age: 62 Room: [facility] Gender: Male Note Status: Finalized Procedure: Upper GI endoscopy Indications: Iron deficiency anemia, Follow-up of Bullock's esophagus Providers: Wagner Farah MD Referring MD: Renard GRAY MD Requesting Provider: Medicines: Monitored Anesthesia Care Complications: No immediate complications. Procedure: Pre-Anesthesia Assessment: - Prior to the procedure, a History and Physical was performed, and patient medications and allergies were reviewed. The patient is competent. The risks and benefits of the procedure and the sedation options and risks were discussed with the patient. All questions were answered and informed consent was obtained. Patient identification and proposed procedure were verified by the physician, the nurse and the anesthesiologist in the procedure room. Mental Status Examination: alert and oriented. Airway Examination: normal oropharyngeal airway and neck mobility. Respiratory Examination: clear to auscultation. CV Examination: normal. Prophylactic Antibiotics: The patient does not require prophylactic antibiotics. Prior Anticoagulants: The patient has taken no previous anticoagulant or antiplatelet agents. ASA Grade Assessment: III - A patient with severe systemic disease. After reviewing the risks and benefits, the patient was deemed in satisfactory condition to undergo the procedure. The anesthesia plan was to use monitored anesthesia care (MAC). Immediately prior to administration of medications, the patient was re-assessed for adequacy to receive sedatives. The heart rate, respiratory rate, oxygen saturations, blood pressure, adequacy of pulmonary ventilation, and response to care were monitored throughout the procedure. The physical status of the patient was re-assessed after the procedure. The Endoscope was introduced through the mouth, and advanced to the second part of duodenum. The upper GI endoscopy was accomplished without difficulty. The patient tolerated the procedure well. Findings: Two tongues of salmon-colored mucosa were present from 36 to 38 cm and circumferential salmon-colored mucosa was present from 38 to 40 cm. No other visible abnormalities were present. The maximum longitudinal extent of these esophageal mucosal changes was 4 cm in length. Biopsies were taken with a cold forceps for histology. Verification of patient identification for the specimen was done by the physician and nurse using the patient's name, date and medical record number. Estimated blood loss was minimal. Localized mild inflammation characterized by erosions and erythema was found in the gastric antrum. Biopsies were taken with a cold forceps for histology. The duodenal bulb and second portion of the duodenum were normal. Impression: - [place]-colored mucosa classified as Bullock's stage C2-M4 per [place] criteria. Biopsied. - Gastritis. Biopsied. - Normal duodenal bulb and second portion of the duodenum. Recommendation: - Patient has a contact number available for emergencies. The signs and symptoms of potential delayed complications were discussed with the patient. Return to normal activities tomorrow. Written discharge instructions were provided to the patient. - Resume previous diet. - Continue present medications. - Follow an antireflux regimen. - Await pathology results. - Repeat upper endoscopy in 3 years for surveillance based on pathology results. - Based on the biopsy results you will receive a phone call from GI clinic in 2-3 weeks to review the pathology results AND/OR your results will be faxed to your Primary care physician. - Return to primary care physician. Wagner Farah MD Wagner Farah MD 05/02/2018 10:23:41 AM This report has been signed electronically. Number of Addenda: 0 Note Initiated On: 05/02/2018 9:25 AM Estimated Blood Loss: Estimated blood loss was minimal.
[2018-05-02 10:25] VITALS: BP 102/68
--- NOTE | 2018-05-02 10:36 | ROOR ---
Patient Name: Rj Ni Procedure Date: 05/02/2018 9:26 AM Date of : 1955 Age: 62 Room: [facility] Gender: Male Note Status: Finalized Procedure: Colonoscopy Indications: Hematochezia, Iron deficiency anemia Providers: Wagner Farah MD Referring MD: Renard GRAY MD Requesting Provider: Medicines: Monitored Anesthesia Care Complications: No immediate complications. Procedure: Pre-Anesthesia Assessment: - Prior to the procedure, a History and Physical was performed, and patient medications and allergies were reviewed. The patient is competent. The risks and benefits of the procedure and the sedation options and risks were discussed with the patient. All questions were answered and informed consent was obtained. Patient identification and proposed procedure were verified by the physician, the nurse and the anesthesiologist in the procedure room. Mental Status Examination: alert and oriented. Airway Examination: normal oropharyngeal airway and neck mobility. Respiratory Examination: clear to auscultation. CV Examination: normal. Prophylactic Antibiotics: The patient does not require prophylactic antibiotics. Prior Anticoagulants: The patient has taken no previous anticoagulant or antiplatelet agents. ASA Grade Assessment: III - A patient with severe systemic disease. After reviewing the risks and benefits, the patient was deemed in satisfactory condition to undergo the procedure. The anesthesia plan was to use monitored anesthesia care (MAC). Immediately prior to administration of medications, the patient was re-assessed for adequacy to receive sedatives. The heart rate, respiratory rate, oxygen saturations, blood pressure, adequacy of pulmonary ventilation, and response to care were monitored throughout the procedure. The physical status of the patient was re-assessed after the procedure. The Colonoscope was introduced through the anus and advanced to the terminal ileum, with identification of the appendiceal orifice and IC valve. The colonoscopy was performed without difficulty. The patient tolerated the procedure well. The quality of the bowel preparation was good. The terminal ileum, ileocecal valve, appendiceal orifice, and rectum were photographed. Scope insertion time was 4 minutes. Scope withdrawal time was 10 minutes. The total duration of the procedure was 14 minutes. Findings: The perianal and digital rectal examinations were normal. The terminal ileum appeared normal. Two sessile polyps were found in the transverse colon. The polyps were 5 to 10 mm in size. These polyps were removed with a cold snare. Resection and retrieval were complete. Verification of patient identification for the specimen was done by the physician and nurse using the patient's name, date and medical record number. Estimated blood loss was minimal. A 5 mm polyp was found in the sigmoid colon. The polyp was sessile. The polyp was removed with a cold snare. Resection and retrieval were complete. Multiple small and large-mouthed diverticula were found from sigmoid to descending colon. Purulent discharge was seen in association with the diverticular opening, suspicious of diverticulitis. Non-bleeding external and internal hemorrhoids were found during retroflexion. The hemorrhoids were medium-sized. Impression: - The examined portion of the ileum was normal. - Two 5 to 10 mm polyps in the transverse colon, removed with a cold snare. Resected and retrieved. - One 5 mm polyp in the sigmoid colon, removed with a cold snare. Resected and retrieved. - Moderate diverticulosis from sigmoid to descending colon. Purulent discharge was seen in association with the diverticular opening, suspicious of diverticulitis. - Non-bleeding external and internal hemorrhoids. Recommendation: - Patient has a contact number available for emergencies. The signs and symptoms of potential delayed complications were discussed with the patient. Return to normal activities tomorrow. Written discharge instructions were provided to the patient. - High fiber diet. - Continue present medications. - Cipro (ciprofloxacin) 500 mg PO BID for 5 days. - Flagyl (metronidazole) 500 mg PO TID for 5 days. - Repeat colonoscopy in 3 - 5 years for surveillance based on pathology results. - Based on the biopsy results you will receive a phone call from GI clinic in 2-3 weeks to review the pathology results AND/OR your results will be faxed to your Primary care physician. - Return to primary care physician. Wagner Farah MD Wagner Farah MD 05/02/2018 10:36:12 AM This report has been signed electronically. Number of Addenda: 0 Note Initiated On: 05/02/2018 9:26 AM Estimated Blood Loss: Estimated blood loss was minimal.
== END 2018-05-02 10:35 | disposition home or self-care (01) ==
LOC: M OPP 07:46
PROVIDERS: ATTEND Internal Medicine Gastroenterology
DX: K64.8 Other hemorrhoids (principal); D12.3 Benign neoplasm of transverse colon; D12.5 Benign neoplasm of sigmoid colon; K92.1 Melena; D50.9 Iron deficiency anemia, unspecified; K22.70 Barrett's esophagus without dysplasia; K29.70 Gastritis, unspecified, without bleeding; G47.30 Sleep apnea, unspecified; I50.9 Heart failure, unspecified; Z79.899 Other long term (current) drug therapy; F17.210 Nicotine dependence, cigarettes, uncomplicated

== ENCOUNTER 2018-05-04 09:10 | Outpatient (CLI) | payer MEDICARE ==
[2018-05-04] VITALS (8 sets, daily range): BP systolic 102–156; BP diastolic 57–74
[~2018-05-04] VITALS: Ht 172.7 cm; Wt 93.8 kg
[~2018-05-04 09:10] MED LIST changes: +ACETAMINOPHEN TAB 650MG DOSE (2X325MG) PO ONE; -NS 1,000 ML IV ONE; -PROPOFOL 500 MG/50 ML VIAL As Ordered ONE; +diphenhydrAMINE 25 MG CAP PO ONE
== END 2018-05-04 16:00 | disposition home or self-care (01) ==
LOC: M INFU 09:10
PROVIDERS: ATTEND Nurse Practitioner Family
DX: D64.9 Anemia, unspecified (principal)
CPT/HCPCS: 36415; 36430; 86850; 86900; 86901; 86920; P9016

== ENCOUNTER → 2018-06-07 | Outpatient (CLI) | payer MEDICARE ==
[~2018-06-07] MED LIST changes: -ACETAMINOPHEN TAB 650MG DOSE (2X325MG) PO ONE; -diphenhydrAMINE 25 MG CAP PO ONE
--- NOTE | 2018-06-07 12:37 | REP ---
CT of the chest without IV contrast for follow up of right middle lobe lung nodule: Comparisons are 11/29/2017 and 09/16/2017. The millimeter lung nodule in the right middle lobe is again identified. And now assumes a linear configuration rather than a nodular configuration but again maximally measures 8 mm. However, there are multiple ground-glass nodules in the right upper lobe, right middle lobe and right lower lobe as a distinct change from both prior studies. Additionally, there is a focal infiltrate like density in the right middle lobe, also an interval change. There is a tiny right pleural effusion as an interval change. The mediastinal lymph node enlargement is unchanged. The study is insensitive for hilar lymph node enlargement in the absence of IV contrast. There is no axillary lymph node enlargement. The thoracic aorta is unremarkable. There is mild pericardial thickening anterolaterally on the right measuring up to 5 mm, not significantly changed. The unenhanced thoracic aorta is R. In the upper abdomen there are gallbladder calculi. These are not included on the previous study. There is no adrenal mass. Impression: The right middle lobe lung nodule is unchanged in size but now assumes a linear configuration rather than nodular. Next line in the mediastinal lymph node enlargement is unchanged. However, there are multiple ground-glass nodules throughout all lobes of the right lung as a distinct interval change. In addition there is a focal infiltrate like density in the right middle lobe. There is a tiny right pleural effusion as an interval change. These findings are nonspecific and could represent infectious or neoplastic etiology. Electronically Signed by Roberto Garcia MD 06/07/2018 12:28 P
== END ==
LOC: M RAD 10:24
PROVIDERS: ATTEND Internal Medicine Pulmonary Disease
DX: R91.8 Other nonspecific abnormal finding of lung field (principal); D64.9 Anemia, unspecified
CPT/HCPCS: 36415; 71250; 82728; 83550; 85027; G0463

== ENCOUNTER → 2018-07-05 | Outpatient (REF) | payer MEDICARE ==
[2018-07-05 14:59] LABS: FREE T4 0.67 NG/DL (0.76-1.46); THYROID STIMULATING HORMONE 42.2 uIU/ML (0.358-3.740)
== END ==
LOC: M LAB REF 13:07
PROVIDERS: ATTEND Internal Medicine Nephrology
DX: E03.9 Hypothyroidism, unspecified (principal)

== ENCOUNTER → 2018-07-06 | Outpatient (REF) | payer MEDICARE ==
[2018-07-06 14:04] LABS: ALBUMIN 3.1 GM/DL (3.2-5.2); BILIRUBIN,TOTAL 0.3 MG/DL (0.2-1.0); C REACTIVE PROTEIN QUANTITATIV 2.79 MG/DL (0.00-0.30); CALCIUM LEVEL 9.2 MG/DL (8.8-10.2); CREATININE FOR GFR 1.99 MG/DL (0.70-1.30); GLOMERULAR FILTRATION RATE 36.6 (>49); POTASSIUM SERUM 4.6 MEQ/L (3.5-5.1)
== END ==
LOC: M SFHCPLAZ 11:16
PROVIDERS: ATTEND Internal Medicine Rheumatology
DX: M05.79 Rheumatoid arthritis with rheumatoid factor of multiple sites without organ or systems involvement (principal)

== ENCOUNTER → 2018-07-12 | Outpatient (REF) | payer MEDICARE ==
[2018-07-12 14:11] LABS: ALBUMIN 2.8 GM/DL (3.2-5.2); ALT/SGPT 12 U/L (12-78); BILIRUBIN,TOTAL 0.5 MG/DL (0.2-1.0); BLOOD UREA NITROGEN 29 MG/DL (7-18); CALCIUM LEVEL 8.6 MG/DL (8.8-10.2); CARBON DIOXIDE LEVEL 29 MEQ/L (21-32); CHLORIDE LEVEL 102 MEQ/L (98-107); CHOLESTEROL LEVEL 210 MG/DL (<200); CREATININE FOR GFR 1.92 MG/DL (0.70-1.30); GLOMERULAR FILTRATION RATE 38.1 (>49); GLUCOSE, FASTING 116 MG/DL (70-100); HDL CHOLESTEROL 30 MG/DL (>40); NON-HDL-C 180 MG/DL; POTASSIUM SERUM 5.1 MEQ/L (3.5-5.1); SODIUM LEVEL 137 MEQ/L (136-145); TOTAL PROTEIN 6.1 GM/DL (6.4-8.2); TRIGLYCERIDES LEVEL 428 MG/DL (<150)
[2018-07-12 14:32] LABS: HEMOGLOBIN A1c 7.2 %
== END ==
LOC: M LAB REF 13:01
PROVIDERS: ATTEND Family Medicine Addiction Medicine
DX: E11.40 Type 2 diabetes mellitus with diabetic neuropathy, unspecified (principal)

== ENCOUNTER → 2018-08-02 | Outpatient (REF) | payer MEDICARE ==
[2018-08-02 10:56] LABS: BASO # 0.1 10^3/uL (0.0-0.2); BASO % 0.9 % (0.0-1.0); EOS # 0.3 10^3/uL (0.0-0.50); EOS % 2.6 % (0.0-3.0); HEMOGLOBIN 10.8 g/dl (13.5-17.5); LYMPH # 1.1 10^3/uL (1.5-4.5); LYMPH % 9.9 % (24.0-44.0); MEAN CORPUSCULAR HEMOGLOBIN 28.9 pg (27.0-33.0); MEAN CORPUSCULAR HGB CONC 32.7 g/dl (32.0-36.5); MEAN CORPUSCULAR VOLUME 88.2 fl (80.0-96.0); MONO # 0.5 10^3/uL (0.0-0.8); MONO % 4.6 % (0.0-5.0); NEUTROPHILS % 81.3 % (36.0-66.0); PLATELET COUNT, AUTOMATED 288 10^3/uL (150-450); RED BLOOD COUNT 3.74 10^6/uL (4.30-6.10); WHITE BLOOD COUNT 11.1 10^3/uL (4.0-10.0)
[2018-08-02 11:28] LABS: PERCENT SATURATION 28.9 % (19.7-50.0)
[2018-08-02 11:33] LABS: FOLATE 7.8 NG/ML
== END ==
LOC: M LAB REF 10:00
PROVIDERS: ATTEND Internal Medicine Gastroenterology
DX: D62 Acute posthemorrhagic anemia (principal)

== ENCOUNTER 2018-09-20 08:28 | Outpatient (RCR) | payer MEDICARE ==
[2018-03-08 11:00] LABS: HEMATOCRIT 35.4 % (42.0-52.0); HEMOGLOBIN 11.8 g/dl (13.5-17.5); LYMPH % 21.2 % (24.0-44.0); MEAN CORPUSCULAR HEMOGLOBIN 31.1 pg (27.0-33.0); MEAN CORPUSCULAR HGB CONC 33.3 g/dl (32.0-36.5); MEAN CORPUSCULAR VOLUME 93.3 fl (80.0-96.0); NEUTROPHILS # 7.1 10^3/uL (1.8-7.7); NEUTROPHILS % 70.5 % (36.0-66.0); RED BLOOD COUNT 3.79 10^6/uL (4.30-6.10); WHITE BLOOD COUNT 10.1 10^3/uL (4.0-10.0)
[2018-03-08 11:19] VITALS: BP 108/73
[2018-03-08 13:19] LABS: ALBUMIN 3.8 GM/DL (3.5-5.2); BLOOD UREA NITROGEN 30 MG/DL (6-20); CALCIUM LEVEL 9.5 MG/DL (8.5-10.2); CARBON DIOXIDE LEVEL 26 MEQ/L (23-31); CHLORIDE LEVEL 102 MMOL/L (98-107); CREATININE FOR GFR 1.67 MG/DL (0.90-1.30); GLOMERULAR FILTRATION RATE 44.7 (>49); GLUCOSE, FASTING 205 MG/DL (70-105); POTASSIUM SERUM 4.9 MMOL/L (3.5-5.1); TOTAL PROTEIN 6.2 GM/DL (6.4-8.3)
[2018-03-08 13:20] LABS: SODIUM LEVEL 136 MMOL/L (136-145)
--- NOTE | 2018-03-08 14:45 | MEDONC ---
MEDICAL HEMATOLOG6 FOLLOWUP VISIT DATE OF SERVICE: 03/08/2018 DIAGNOSIS: Iron deficiency anemia, no previous history of obvious source of blood loss, previous upper and lower endoscopy negative. (EGD and colonoscopy with Dr. Farah on 04/02/2017.) OTHER MEDICAL PROBLEMS: Insulin dependent diabetes mellitus, hypothyroid, COPD/asthma for which the patient is on continuous nasal O2 at 3 liters per minute, stage III-IV kidney disease, gallstones, hypertension, hypercholesterolemia, depression, obstructive sleep apnea, and elevated inflammatory markers. Previous treatment for iron deficiency anemia has included InFeD on 02/24/2017 and 04/29/2017 with replenishment of iron stores and correction initially of the patient's hemoglobin and hematocrit. INTERVAL HISTORY: Mr. Ni presents today for a scheduled followup. For reasons unknown to me, he was lost to followup after additional laboratory testing on 11/08/2017 that identified homolysis. Haptoglobin on 11/08/2017 was 234. This is being repeated today. At that time, retic count was also elevated at 2.4. Peripheral smear for path review indicated essentially normal platelet morphology, no abnormal immature leukocytes, no stigmata of homolysis seen. Mr. Ni presents today reporting progressive fatigue. Hemoglobin and hematocrit today are 11.8 and 35.4 with a normal MCV and MCH. Current iron studies indicate a serum iron of 48, TIBC 253, 19% saturation, ferritin 257. Chemistries are unremarkable with the exception of a BUN of 34, creatinine 1.53 and a nonfasting glucose of 222. Pending as of this dictation is a repeat haptoglobin. Mr. Ni also reports a more recent history of bright red blood noted in the toilet bowl over the past week. He attributes this to "hemorrhoids." At present, no other new complaints are offered. BRIEF PHYSICAL EXAM: Vital signs: Temperature 98.7, pulse 90, respirations 18, BP 108/73, O2 sat 95% with 3 liters of nasal O2 in place. Cardiac is S1-S2. Lung sounds diminished bilaterally without rales, wheezing or rhonchi. Extremities: Without clubbing, cyanosis or edema. LABORATORY DATA: As noted above. IMPRESSION: Progressive iron deficiency anemia with recent report of blood per rectum of unclear GI source. PLAN: The patient is agreeable to repeat parenteral iron x2. This will be followed by repeat blood work, including CBC and iron studies approximately 6 weeks after the second parenteral iron infusion. Any abnormalities with the patient's additional blood work from today will be addressed appropriately. We will also refer Mr. Ni back to Dr. Farah for evaluation and possible repeat colonoscopy. The patient is in agreement with our plan. Reviewed by Charlotte Joshua NP 03/09/2018 07:53 A Electronically Signed by Basilia Goff MD 03/09/2018 08:58 A DD: Charlotte Joshua NP 03/08/2018 12:05 P DT: raymond 03/08/2018 02:24 P CC: MD Renard Veronica MD
[2018-03-16 08:00] VITALS: BP 114/69
[2018-03-16 11:44] VITALS: BP 111/67
[2018-03-23 08:15] VITALS: BP 116/71
[2018-03-23 11:45] VITALS: BP 121/70
[2018-05-09 10:42] VITALS: BP 134/84
[2018-05-09 11:40] LABS: HEMATOCRIT 33.8 % (42.0-52.0); HEMOGLOBIN 10.8 g/dl (13.5-17.5); LYMPH % 21.4 % (24.0-44.0); MEAN CORPUSCULAR HEMOGLOBIN 29.3 pg (27.0-33.0); MEAN CORPUSCULAR VOLUME 91.8 fl (80.0-96.0); NEUTROPHILS # 7.1 10^3/uL (1.8-7.7); NEUTROPHILS % 69.3 % (36.0-66.0); RED BLOOD COUNT 3.68 10^6/uL (4.30-6.10); WHITE BLOOD COUNT 10.3 10^3/uL (4.0-10.0)
[2018-05-26 13:01] LABS: HEMATOCRIT 29.8 % (42.0-52.0); HEMOGLOBIN 9.9 g/dl (13.5-17.5); LYMPH % 11.4 % (24.0-44.0); MEAN CORPUSCULAR HEMOGLOBIN 29.9 pg (27.0-33.0); MEAN CORPUSCULAR HGB CONC 33.2 g/dl (32.0-36.5); MEAN CORPUSCULAR VOLUME 90.1 fl (80.0-96.0); NEUTROPHILS # 7.6 10^3/uL (1.8-7.7); NEUTROPHILS % 83.4 % (36.0-66.0); RED BLOOD COUNT 3.31 10^6/uL (4.30-6.10); WHITE BLOOD COUNT 9.1 10^3/uL (4.0-10.0)
--- NOTE | 2018-05-27 10:45 | RO ---
DATE OF PROCEDURE: 05/26/2018 PROCEDURE: Bone marrow aspirate and biopsy. DIAGNOSIS: Iron deficiency, multifactorial anemia in a patient with rheumatoid arthritis, negative endoscopic GI workup here for diagnostic bone marrow biopsy and aspirate. Risks, benefits, side effects and alternatives to bone marrow biopsy were explained, these include pain, bleeding, infection at the site potential for organ puncture with catastrophic consequence and option of not doing bone marrow biopsy. Written informed consent was obtained. The patient was prepped and draped in the usual sterile fashion, time out taken, the patient self identified and procedure to be done. After appropriate local anesthesia, bone marrow aspirate and biopsy were obtained from the left posterior superior iliac crest. The patient tolerated the procedure well. Minimal bleeding at the site. Pressure bandage placed. Studies sent for molecular, morphologic and cytogenetic studies, as well as JAK2.
[2018-06-07 08:11] VITALS: BP 140/90
--- NOTE | 2018-06-07 09:10 | MEDONC ---
MEDICAL ONCOLOGY FOLLOWUP DATE OF SERVICE: 06/07/2018 DIAGNOSIS: Multifactorial refractory anemia with emerging transfusion dependence in a 62-year-old man with oxygen-dependent COPD, CHF, negative upper and lower endoscopy now status post bone marrow biopsy 05/26/2018 indeterminate findings to date. INTERVAL HISTORY: Mr. Ni is here for results of 05/26/2018 bone marrow biopsy. By verbal report, this shows normocellular trilineage maturation. Iron stain is positive. Cytogenetics are pending, flow cytometry was negative. On morphology, there appeared to be ringed sideroblasts raising the possibility of myelodysplastic syndrome without presence of observable myelodysplasia. I explained to Mr. Ni and his the preliminary results. He is awaiting results of a recent capsule endoscopy. He is status post RBC and iron infusions: Last red blood cell infusion 2 units on May 04, last iron infusion March 23. We talked over other ongoing issues: Rj follows with Dr. Kim for stage III CKD; Dr. Kim had raised the possibility of epoetin rica. The dosing is different for MDS versus renal insufficiency/CKD caused anemia and therefore establishing the bone marrow diagnosis is important. I answered the patient and his 's questions. IMPRESSION: Refractory anemia, likely multifactorial in a patient with CKD, CHF, 3 liters O2 dependent, COPD, increasing fatigability and anemia in the last 6 months, recent need for iron infusion and RBC infusion. Ring sideroblasts but no overt myelodysplasia on bone marrow biopsy with cytogenetics pending. PLAN: 1. CBC extra pink top today. Will transfuse for hemoglobin below 9. 2. Return in 2 weeks. Followup final bone marrow results as well as capsule endoscopy results. CBC extra pink top that day. If endoscopic findings negative, with bone marrow confirming a myelodysplastic syndrome meeting WHO criteria, would start epoetin alpha. TIME STATEMENT: 15 minutes spent [id number] with the patient, more than 50% involved in discussing bone marrow results, transfusion parameters, and plan. Electronically Signed by Basilia Goff MD 06/07/2018 04:22 P DD: Basilia Goff MD 06/07/2018 08:47 A DT: [email or web address] 06/07/2018 08:58 A CC: MD Renard Taveras MD
[2018-06-07 09:12] LABS: HEMATOCRIT 35.4 % (42.0-52.0); HEMOGLOBIN 11.4 g/dl (13.5-17.5); LYMPH % 7.3 % (24.0-44.0); MEAN CORPUSCULAR HEMOGLOBIN 29.1 pg (27.0-33.0); MEAN CORPUSCULAR HGB CONC 32.2 g/dl (32.0-36.5); MEAN CORPUSCULAR VOLUME 90.2 fl (80.0-96.0); NEUTROPHILS # 17.9 10^3/uL (1.8-7.7); NEUTROPHILS % 87.6 % (36.0-66.0); RED BLOOD COUNT 3.92 10^6/uL (4.30-6.10); WHITE BLOOD COUNT 20.4 10^3/uL (4.0-10.0)
[2018-06-07 09:51] LABS: PERCENT SATURATION 14.4 % (19.7-50.0)
--- NOTE | 2018-06-11 10:48 | MEDONC ---
MEDICAL ONCOLOGY/HEMATOLOGY FOLLOWUP DATE OF SERVICE: 05/09/2018 DIAGNOSIS: Refractory anemia with iron deficiency, progressive transfusion dependent [id number] in the setting of multiple medical problems. - Status post panendoscopy 05/02/2018, including small bowel biopsy, negative for evidence of bleeding or celiac disease; adenomatous polyps and tubular adenoma on colonoscopy. - Status post iron infusions 02/24/2017, 04/29/2017. - Status post 2 units RBC transfusion 05/04/2018. - Epoetin level 11.4 in 03/2018. - Current iron studies: Low TIBC, elevated ferritin, low serum iron and transferrin saturation. OTHER MEDICAL PROBLEMS: COPD, 3 liters oxygen dependent for several years. Stage 3/4 CKD. Rheumatoid arthritis line. Uncompensated hypothyroidism (TSH currently in the 30s). Elevated CRP and ESR on recent labs. INTERVAL HISTORY: Mr. Ni is here for followup. CBC today with WBC 10, hemoglobin 10.8, hematocrit 33, platelets 331 after recent RBC transfusion, needed despite iron infusion 04/29/2017. Given normal/relatively low epoetin in the setting of chronic anemia, renal insufficiency could be part of the cause and myelodysplasia becomes part of the differential as well. I discussed today diagnostic bone marrow biopsy to help sort out the nature of his chronic anemia and progressive transfusion dependence. I reviewed the procedure, risks and benefits, including but not limited to pain, bleeding, infection at the site, remote risk of organ puncture; the benefit of additional knowledge about the cause of his anemia and potential treatment, such as exogenous epoetin. He agreed and we made the plan outlined below. IMPRESSION: Refractory anemia, possibly multifactorial, with iron deficiency and progressive recurrent need for iron and RBC transfusions in the setting of stage 3/4 chronic kidney disease, rheumatoid arthritis and oxygen dependent COPD. PLAN: 1. Return to clinic for diagnostic bone marrow aspirate and biopsy. 2. We will see the patient in approximately 10-14 days after procedure for results. Electronically Signed by Basilia Goff MD 06/12/2018 03:59 P DD: Basilia Goff MD 06/10/2018 04:54 P DT: [email or web address] 06/11/2018 10:29 A CC: MD Renard Taveras MD
[2018-06-21 11:11] VITALS: BP 100/69
[2018-06-21 11:13] LABS: HEMATOCRIT 30.9 % (42.0-52.0); HEMOGLOBIN 10.1 g/dl (13.5-17.5); LYMPH % 19.8 % (24.0-44.0); MEAN CORPUSCULAR HEMOGLOBIN 29.4 pg (27.0-33.0); MEAN CORPUSCULAR HGB CONC 32.7 g/dl (32.0-36.5); MEAN CORPUSCULAR VOLUME 89.7 fl (80.0-96.0); NEUTROPHILS # 7.8 10^3/uL (1.8-7.7); NEUTROPHILS % 71.8 % (36.0-66.0); RED BLOOD COUNT 3.44 10^6/uL (4.30-6.10); WHITE BLOOD COUNT 10.8 10^3/uL (4.0-10.0)
[2018-06-21 12:10] LABS: PERCENT SATURATION 14.9 % (19.7-50.0)
--- NOTE | 2018-06-22 15:48 | MEDONC ---
MEDICAL ONCOLOGY/HEMATOLOGY FOLLOWUP DATE OF SERVICE: 06/21/2018 DIAGNOSIS: Refractory anemia with evidence of that ring sideroblasts on bone marrow biopsy, normal cytogenetics, normocellular in the setting of intermittent iron deficiency, transfusion dependence, negative baca endoscopy. 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 (Please see 05/09/2018 note for history of workup.) OTHER MEDICAL PROBLEMS: COPD, 3 liter O2 dependent. Stage III-IV CKD. Rheumatoid arthritis. Uncompensated hypothyroidism (TSH in the 30s). Elevated CRP and ESR on 2019 labs. INTERVAL HISTORY: Mr. Ni is here for followup of 06/07/2018 bone marrow biopsy. Normal male karyotype observed, normocellular bone marrow (40%) with maturing trilinear hematopoiesis. "Although no definite morphologic evidence of erythroid dysplasia is identified, iron stain did show scattered ring sideroblasts raising the possibility of myelodysplasia." Flow cytometry negative, JAK2 negative, karyotype normal male 46 XY. I conveyed these results to Rj and his [id number]. His just fractured her ankle and is about to have surgery. He feels pretty good today. Hemoglobin/hematocrit 10.1 and 30.9, down from 11.4 and 35.4 just is 2 weeks ago. Most recent transfusion early April. Current iron studies 06/21/2018 with serum iron 29, TIBC 194, transferrin saturation 15%, and ferritin level 359. A somewhat confusing mix not consistent with iron deficiency. I discussed empiric treatment with single lineage dysplasia with a caveat of no overt myelodysplasia but presence of ring sideroblasts (not yet reached, for WHO MDS with ring sideroblasts). I reviewed risks, benefits, side effects and schedule of epoetin rica would start with 20,000 units q. 2 weeks, follow hemoglobin/hematocrit, treat to target hemoglobin 12 (holding for hemoglobin 12 or higher), watching blood pressure, and rate of rise of hemoglobin closely. I reviewed risks, benefits and side effects including stroke, heart attack, hypertension. Rj is comfortable with the plan. I answered his and his [id number] questions. IMPRESSION: Refractory anemia, clinically meeting criteria for early MDS, normocellular, normal cytogenetics, presence of ring sideroblasts in a patient with multiple medical problems including intermittent iron deficiency, chronic kidney disease at least stage III, diastolic cardiac dysfunction, oxygen dependent COPD. PLAN: 1. Return to clinic to begin epoetin rica 20,000 units subcu q. 2 weeks. Follow hemoglobin/hematocrit, obtain extra pink top each visit. 2. Office followup on the third treatment visit. Monitor blood pressure and rate of rise of hemoglobin. 3. Repeat iron studies. TIME STATEMENT: 25 minutes spent [id number] with the patient and his [id number]; more than 50% involving counseling regarding MDS diagnosed, the provisional nature of this diagnosis given the findings on bone marrow biopsy, treatment with epoetin rica, reviewing risks, benefits and side effects, outlining a schedule, answering all questions. Electronically Signed by Basilia Goff MD 06/24/2018 02:38 P DD: Basilia Goff MD 06/21/2018 12:10 P DT: [email or web address] 06/22/2018 03:21 P CC: MD Renard Taveras MD
[2018-07-05 09:47] LABS: HEMATOCRIT 29.9 % (42.0-52.0); HEMOGLOBIN 9.7 g/dl (13.5-17.5); LYMPH % 21.9 % (24.0-44.0); MEAN CORPUSCULAR HEMOGLOBIN 28.9 pg (27.0-33.0); MEAN CORPUSCULAR HGB CONC 32.4 g/dl (32.0-36.5); NEUTROPHILS # 6.7 10^3/uL (1.8-7.7); NEUTROPHILS % 68.8 % (36.0-66.0); RED BLOOD COUNT 3.36 10^6/uL (4.30-6.10); WHITE BLOOD COUNT 9.8 10^3/uL (4.0-10.0)
[2018-07-05 10:10] VITALS: BP 120/83
[2018-07-19 10:00] LABS: HEMOGLOBIN 10.4 g/dl (13.5-17.5); LYMPH % 14.7 % (24.0-44.0); MEAN CORPUSCULAR HEMOGLOBIN 28.9 pg (27.0-33.0); MEAN CORPUSCULAR HGB CONC 32.5 g/dl (32.0-36.5); NEUTROPHILS # 7.9 10^3/uL (1.8-7.7); NEUTROPHILS % 77.9 % (36.0-66.0); RED BLOOD COUNT 3.6 10^6/uL (4.30-6.10); WHITE BLOOD COUNT 10.2 10^3/uL (4.0-10.0)
[2018-07-19 10:32] VITALS: BP 149/87
[2018-08-02 09:47] LABS: HEMATOCRIT 34.7 % (42.0-52.0); HEMOGLOBIN 11.3 g/dl (13.5-17.5); MEAN CORPUSCULAR HEMOGLOBIN 28.6 pg (27.0-33.0); MEAN CORPUSCULAR HGB CONC 32.6 g/dl (32.0-36.5); MEAN CORPUSCULAR VOLUME 87.9 fl (80.0-96.0); NEUTROPHILS # 8.8 10^3/uL (1.8-7.7); NEUTROPHILS % 80.7 % (36.0-66.0); RED BLOOD COUNT 3.95 10^6/uL (4.30-6.10); WHITE BLOOD COUNT 10.9 10^3/uL (4.0-10.0)
[2018-08-02 10:06] VITALS: BP 152/80
[2018-08-23 09:49] LABS: HEMOGLOBIN 10.8 g/dl (13.5-17.5); MEAN CORPUSCULAR HEMOGLOBIN 27.8 pg (27.0-33.0); MEAN CORPUSCULAR HGB CONC 31.8 g/dl (32.0-36.5); MEAN CORPUSCULAR VOLUME 87.6 fl (80.0-96.0); NEUTROPHILS # 6.2 10^3/uL (1.8-7.7); NEUTROPHILS % 69.4 % (36.0-66.0); RED BLOOD COUNT 3.88 10^6/uL (4.30-6.10)
[2018-08-23 10:19] VITALS: BP 111/73
--- NOTE | 2018-08-24 07:57 | MEDONC ---
MEDICAL ONCOLOGY HEMATOLOGY FOLLOW-UP VISIT DATE OF SERVICE: 08/23/2018 DIAGNOSIS: Refractory anemia with evidence of ring sideroblasts on bone marrow biopsy, normal cytogenetics, normal cellular in the setting of intermittent iron deficiency, transfusion dependence, negative panendoscopy. 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 (Please see 05/09/2018 note for history of workup). OTHER MEDICAL PROBLEMS: COPD, 3 liter O2 dependent. Stage III-IV chronic kidney disease. Rheumatoid arthritis. Uncompensated hypothyroidism. Elevated CRP and ESR on 2019 labs. INTERVAL HISTORY: Rj presents today for a scheduled follow-up visit. As noted above, most recent bone marrow aspiration and biopsy dated 06/07/2018 indicated normal male karyotype observed, normal cellular bone marrow (40%) with maturing trilinear hematopoiesis. "Although no definite morphologic evidence of the erythroid dysplasia is identified, iron stain did show scattered ring sideroblasts raising the possibility of myelodysplasia". Flow cytometry negative, JAK2 negative, karyotype normal male for 6XY. Rj was most recently started on 20,000 units of Procrit subcu q. 2 weeks for hemoglobin less than 12. Clearly he has had a response to the Procrit with his baseline hemoglobin on 07/05/2018 9.7, up to 11.3 on 08/02/2018. Unfortunately, Rj's hemoglobin is down a little bit to 10.8 today, however it has been 3 weeks since he was here and received his last Procrit. Rj indicates that he has less fatigue since receiving the Procrit. At present, he is in his usual state of health and offers no new complaints today. PHYSICAL EXAMINATION: Vital signs: Weight 92.8 kg, temperature 98.4, pulse 77, respirations 20, BP 111/73, O2 sat 98% at rest with 3 liters of nasal O2. Physical exam deferred. LABORATORY DATA: WBC 9.0, ANC 8.6, RBC 3.88, hemoglobin and hematocrit 10.8/34.0, platelets 327. Most recent ferritin from 08/02/2018 within normal parameters at 236. IMPRESSION: Refractory anemia, clinically meeting criteria for early MDS, normal cellular, normal cytogenetics, presence of ring several blasts in a patient with multiple medical problems including intermittent iron deficiency, chronic kidney disease at least stage III, diastolic cardiac dysfunction, O2 dependent/COPD. PLAN: 1. Procrit to 20,000 units today and subcu q. 2 weeks. Follow hemoglobin/hematocrit. 2. Rj will be seen for a brief office visit in 3 weeks at which time we will also check a current ferritin level. We will monitor the patient's blood pressure carefully while receiving Procrit. Electronically Signed by Charlotte Joshua NP 08/24/2018 03:19 P DD: Charlotte Joshua NP 08/23/2018 11:06 A DT: [email or web address] 08/24/2018 07:37 A CC: MD Renard Taveras MD
[2018-09-06 09:07] LABS: HEMATOCRIT 31.5 % (42.0-52.0); HEMOGLOBIN 10.3 g/dl (13.5-17.5); LYMPH % 21.5 % (24.0-44.0); MEAN CORPUSCULAR HEMOGLOBIN 28.1 pg (27.0-33.0); MEAN CORPUSCULAR HGB CONC 32.7 g/dl (32.0-36.5); MEAN CORPUSCULAR VOLUME 86.1 fl (80.0-96.0); NEUTROPHILS # 6.3 10^3/uL (1.8-7.7); NEUTROPHILS % 68.8 % (36.0-66.0); RED BLOOD COUNT 3.66 10^6/uL (4.30-6.10); WHITE BLOOD COUNT 9.1 10^3/uL (4.0-10.0)
[2018-09-06 09:16] VITALS: BP 144/78
[~2018-09-20] VITALS: Ht 172.7 cm; Wt 90.8 kg
[~2018-09-20 08:28] MED LIST changes: +ACETAMINOPHEN 650 MG PO PO ONE; +EPOETIN 20,000 UNIT/ML SC ONE; +IRON SUCROSE 400 MG in NS 250 ML OVER 2.5 HRS IV ONE; +LIDOCAINE 2% MDV 20 ML VIAL SC ONE; +LISI10TA15 PO; -LISI10TA2 PO; -OMEP20CA3 PO; +OMEP20CA4 PO; +dexameTHASONE 10 MG IV IV ONE; +diphenhydrAMINE 50 MG PO PO ONE
[2018-09-20 08:49] LABS: HEMATOCRIT 36.6 % (42.0-52.0); HEMOGLOBIN 11.8 g/dl (13.5-17.5); LYMPH % 12.5 % (24.0-44.0); MEAN CORPUSCULAR HEMOGLOBIN 27.8 pg (27.0-33.0); MEAN CORPUSCULAR HGB CONC 32.2 g/dl (32.0-36.5); MEAN CORPUSCULAR VOLUME 86.2 fl (80.0-96.0); NEUTROPHILS # 10.8 10^3/uL (1.8-7.7); NEUTROPHILS % 81.8 % (36.0-66.0); RED BLOOD COUNT 4.25 10^6/uL (4.30-6.10); WHITE BLOOD COUNT 13.2 10^3/uL (4.0-10.0)
[2018-09-20 08:52] VITALS: BP 142/86
[2018-09-20] MEDS ORDERED: ANOR1AER PO (08:59)
[2018-09-20] MEDS ORDERED: AZIT-12 PO (08:59)
[2018-09-20] MEDS ORDERED: PRED10TA2 PO (08:59)
[2018-09-20] MEDS ORDERED: EPOETIN 20,000 UNIT/ML SC ONE (09:30)
--- NOTE | 2018-09-22 08:43 | MEDONC ---
MEDICAL ONCOLOGY HEMATOLOGY FOLLOWUP/TREATMENT VISIT DATE OF SERVICE: 09/20/2018 DIAGNOSIS: Refractory anemia with evidence of ring sideroblasts on bone marrow biopsy, normal cytogenetics, normal cellular in the setting of intermittent iron deficiency, transfusion dependence, negative baca endoscopy. 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 (Please see 05/09/2018 note for history of workup). OTHER MEDICAL PROBLEMS: COPD, 3 liter O2 dependent. Stage 3-4 chronic kidney disease. Rheumatoid arthritis. Uncompensated hypothyroidism. Elevated CRP and ESR on 2019 labs. INTERVAL HISTORY: Rj presents today for a scheduled follow-up visit and blood work including a CBC with differential and current ferritin level. He was diagnosed yesterday with a lower respiratory infection and started on antibiotic (erythromycin) and a 30 mg daily dose of prednisone for 5 days. He reportedly was also given 1 gram of Rocephin in the doctor's office yesterday. Rj states that his breathing is "already better." He denies any productive cough. Currently no fevers or chills. No other new complaints. Today's H/H are up to 11.8/36.6 from 10.3/31.5 on 09/06/2018. Rj's most recent Procrit (20,000 units) was on 09/06/2018. VITAL SIGNS: Weight is 90.8 kg, temperature 97.3, pulse 91, respirations 20, BP 142/86, O2 sat 95% with 3 liters of nasal O2 in place. PHYSICAL EXAMINATION: Deferred. LABORATORY DATA: Remainder of today's CBC indicates a white blood cell count of 13.2, ANC 10.8, RBC 4.25, platelets 283. A current ferritin level is pending as of this dictation. IMPRESSION: Refractory anemia, clinically meeting criteria for early MDS, normal cellular, normal cytogenetics, presence of ring sideroblasts in a patient with multiple medical problems including intermittent iron deficiency, chronic kidney disease at least stage 3, diastolic cardiac dysfunction, O2 dependent COPD, and recent diagnosis of lower respiratory infection causing exacerbation of COPD being managed with antibiotic and prednisone. PLAN: 1. Procrit 20,000 units today. 2. Rj will return in 4 weeks for a followup visit, repeat blood work and possible Procrit. He was advised to contact us in the interim should he develop any signs or symptoms of progressive anemia. Electronically Signed by Charlotte Joshua NP 09/22/2018 03:37 P DD: Charlotte Joshua NP 09/20/2018 09:28 A DT: [email or web address] 09/22/2018 08:35 A CC: Renard Garcia MD
== END 2018-09-20 09:34 | disposition home or self-care (01) ==
LOC: M ONCM 08:28
PROVIDERS: ATTEND Internal Medicine Medical Oncology
DX: D46.9 Myelodysplastic syndrome, unspecified (principal); D46.1 Refractory anemia with ring sideroblasts; D50.9 Iron deficiency anemia, unspecified; N18.3 Chronic kidney disease, stage 3 (moderate); D63.1 Anemia in chronic kidney disease; J44.9 Chronic obstructive pulmonary disease, unspecified; M06.9 Rheumatoid arthritis, unspecified; E03.9 Hypothyroidism, unspecified; Z99.81 Dependence on supplemental oxygen; Z79.899 Other long term (current) drug therapy
CPT/HCPCS: 36415; 38222; 80053; 82607; 82668; 82728; 82746; 83010; 83550; 85025; 85027; 85046; 88300; 88305; 88311; 88313; 96365; 96366; 96372; 96375; G0463; J0885; J1100; J1756

== ENCOUNTER → 2018-10-04 | Outpatient (CLI) | payer MEDICARE ==
[~2018-10-04] MED LIST changes: -ACETAMINOPHEN 650 MG PO PO ONE; +ANOR1AER PO; +AZIT-12 PO; -EPOETIN 20,000 UNIT/ML SC ONE; -IRON SUCROSE 400 MG in NS 250 ML OVER 2.5 HRS IV ONE; -LIDOCAINE 2% MDV 20 ML VIAL SC ONE; +OMEP1CAP73 PO; -OMEP20CA4 PO; -dexameTHASONE 10 MG IV IV ONE; -diphenhydrAMINE 50 MG PO PO ONE
--- NOTE | 2018-10-04 17:48 | REP ---
REASON: Followup bilateral ground glass opacities in the lung [place] along with right middle lobe opacity and right middle lobe nodule. All priors were reviewed. The latest is 06/07/2018. The mediastinum and pulmonary jose alfredo are unchanged. There is evidence of mild mediastinal adenopathy status quo. Mild hilar adenopathy can not be ruled out. The lack of intravenous contrast decreases the sensitivity of the exam in detecting hilar adenopathy. There are no pleural or pericardial effusions. There is no change in the appearance of the imaged upper abdomen or imaged osseous structures. There is cholelithiasis. Evaluation of the lung [place] shows improvement with complete resolution of all previous ground glass opacities. There are no new abnormal nodules, masses or opacities. There is a stable small right middle lobe nodule. IMPRESSION: Significant improvement with stable nodule as described above. According to the revised Fleischner's Society Criteria yearly screening is recommended provided the patients risk factor remain high. Electronically Signed by Livan Sung DO 10/05/2018 12:33 P
== END ==
LOC: M RAD 12:20
PROVIDERS: ATTEND Internal Medicine Pulmonary Disease
DX: R91.8 Other nonspecific abnormal finding of lung field (principal)